=== PATIENT | male | born 1935 | race Caucasian/White ===

== ENCOUNTER 2016-11-04 17:13 | Inpatient (IN) | payer MEDICARE ==
[~2016-11-04] VITALS: Ht 175.3 cm; Wt 57.2 kg
--- NOTE | ~2016-11-04 | HEMODYNAMI ---
PATIENT:DESTINY BROOKS MEDICAL RECORD: [id number] : 37 LOCATION:[facility] ADMISSION DATE: 11/04/16 Generatedon:11/10/201615:59 Patient name: DESTINY BROOKS Patient #: [id number] SSN: : 1935 Date of study: 11/10/2016 Page: Of Hemodynamic Procedure Report Patient Data Patient Demographics Procedure consent was obtained First Name: DESTINY Gender: Male Last Name: TODD : 1935 Patient #: [id number] Age: 81 year(s) Race: Unknown Additional ID: [id number] Contact details [address]: [address] [place] [address] State: [place] City: [place] Zip code: [address] Admission Admission Data Admission Date: 11/04/2016 Admission Time: 17:13 Room #: [id number] Procedure Procedure Types Cath Procedure Peripheral Cath Diagnostic Procedure Miscellaneous Procedure Description Procedure Date Procedure Date: 11/10/2016 Procedure Start Time: 13:30 Procedure Staff Name Function José Luis Stallings MD Performing Physician Geovany Solomon RT Scrub Geovany Solomon RT Monitor Jayne Watkins RN Nurse Procedure Data Cath Procedure Fluoroscopy Diagnostic fluoroscopy Total fluoroscopy Time: 24 time: 24 min min Diagnostic fluoroscopy Total fluoroscopy dose: 202 dose: 202 mGy mGy Contrast Material Contrast Material Type Amount (ml) Isovue 300 135 Entry Location Entry Primary Successful Side Size Upsize Upsize Entry Closure Succes sful Closure Location (Fr) 1 (Fr) 2 (Fr) Remarks Device Remarks Femoral Left 5 Fr 6 Fr Exoseal artery Long Diagnostic catheters Device Type Used For End Catheter Placement Merit ULTRA BOLUS FLUSH 5Fr 65CM catheter Procedure Medications Medication Administration Route Dosage Versed I.V. 1 mg Fentanyl I.V. 50 mcg Heparin Bolus I.V. 5000 units Fentanyl I.V. 50 mcg Versed I.V. 1 mg Nitroglycerin IC/IA I.A. 200 mcg Fentanyl I.V. 50 mcg Versed I.V. 1 mg Heparin Bolus I.V. 2000 units Nitroglycerin IC/IA I.A. 200 mcg Versed I.V. 1 mg Fentanyl I.V. 50 mcg Hemodynamics Rest Heart Rate: 88 (bpm) Snapshots Pre Cath Intra NCS Post Cath Vital Signs Time Heart Resp SPO2 NIBP (mmHg) Rhythm Pain Sedation Rate (ipm) (%) Status Level (bpm) 13:27:43 72 17 97 143/64(104) NSR 0 (11) 10(A) , No pain 13:31:55 76 19 95 152/65(120) NSR 0 (11) 10(A) , No pain 13:36:11 77 16 96 151/68(110) NSR 0 (11) 10(A) , No pain 13:40:27 76 19 92 144/66(120) NSR 0 (11) 10(A) , No pain 13:44:41 73 21 95 146/65(104) NSR 0 (11) 10(A) , No pain 13:48:55 74 19 94 136/65(109) NSR 0 (11) 10(A) , No pain 13:53:05 73 20 90 139/64(114) NSR 0 (11) 10(A) , No pain 13:57:17 75 14 97 144/62(118) NSR 0 (11) 10(A) , No pain 14:01:31 72 19 98 142/63(112) NSR 0 (11) 10(A) , No pain 14:05:45 73 15 98 139/64(112) NSR 0 (11) 10(A) , No pain 14:09:57 76 19 98 156/66(125) NSR 0 (11) 10(A) , No pain 14:14:15 75 15 98 143/65(119) NSR 0 (11) 10(A) , No pain 14:18:29 75 17 98 139/65(107) NSR 0 (11) 10(A) , No pain 14:22:45 75 13 99 116/52(91) NSR 0 (11) 9(A) , No pain 14:26:51 76 18 96 118/62(91) NSR 0 (11) 9(A) , No pain 14:30:58 79 19 95 125/59(100) NSR 0 (11) 9(A) , No pain 14:35:08 75 19 96 128/58(94) NSR 0 (11) 9(A) , No pain 14:39:16 80 17 97 120/63(102) NSR 0 (11) 9(A) , No pain 14:43:24 75 19 97 134/60(95) NSR 0 (11) 10(A) , No pain 14:47:36 75 19 97 123/63(96) NSR 0 (11) 10(A) , No pain 14:51:44 76 16 98 136/64(112) NSR 0 (11) 10(A) , No pain 14:55:56 80 19 97 131/68(114) NSR 0 (11) 10(A) , No pain 15:00:05 72 17 96 131/62(99) NSR 0 (11) 10(A) , No pain 15:04:13 73 16 98 127/71(99) NSR 0 (11) 10(A) , No pain 15:08:23 74 17 98 126/60(98) NSR 0 (11) 9(A) , No pain 15:12:33 73 17 96 134/59(107) NSR 0 (11) 9(A) , No pain 15:16:45 75 18 92 115/62(84) NSR 0 (11) 9(A) , No pain 15:20:51 77 16 95 127/58(104) NSR 0 (11) 9(A) , No pain 15:24:59 72 16 94 118/63(108) NSR 0 (11) 9(A) , No pain 15:29:02 74 17 98 126/63(102) NSR 0 (11) 10(A) , No pain 15:33:12 74 18 98 121/58(103) NSR 0 (11) 10(A) , No pain 15:37:22 75 17 98 120/54(93) NSR 0 (11) 10(A) , No pain 15:41:28 77 18 97 123/63(112) NSR 0 (11) 9(A) , No pain 15:46:27 79 17 98 Measuring NSR 0 (11) 9(A) , No pain 15:46:35 79 17 98 146/67(114) NSR 0 (11) 9(A) , No pain 15:50:51 79 18 98 130/65(104) NSR 0 (11) 9(A) , No pain 15:54:57 79 17 98 144/77(112) NSR 0 (11) 9(A) , No pain Medications Time Medication Route Dose Verified Delivered Reason Notes Ef fectiveness by by 13:30:11 Fentanyl I.V. 50 Jayne Jayne for sedation mcg Roland Watkins RN RN 13:30:21 Versed I.V. 1 mg Jayne Jayne for sedation Roland Watkins RN RN 14:08:54 Heparin Bolus I.V. 5000 Jayne Jayne for units Roland Roland anticoagulation RN RN 14:15:50 Fentanyl I.V. 50 Jayne Jayne for sedation mcg Roland Watkins RN RN 14:15:59 Versed I.V. 1 mg Jayne Jayne for sedation Roland Watkins RN RN 14:21:40 Nitroglycerin I.A. 200 Jayne Jayne for IC/IA mcg Roland Roland vasodilation RN RN 14:58:36 Fentanyl I.V. 50 Jayne Jayne for sedation mcg Roland Watkins RN RN 14:58:45 Versed I.V. 1 mg Jayne Jayne for sedation Roland Watkins RN RN 15:20:39 Nitroglycerin I.A. 200 Jayne Jayne for IC/IA mcg Roland Roland vasodilation RN RN 15:28:22 Heparin Bolus I.V. 2000 Jayne Jayne for units Roland Roland anticoagulation RN RN 15:34:26 Versed I.V. 1 mg Jayne Jayne for sedation Roland Watkins RN RN 15:34:36 Fentanyl I.V. 50 Jayne Jayne for sedation mcg Roland Watkins RN field sales executive Log Time Note 13:02:28 Geovany Solomon RT (R) (CV) sent for patient. Start room use. 13:02:38 Time tracking: Regular hours 13:02:44 Plan of Care:Hemodynamics will remain stable., Cardiac rhythm will remain stable., Comfort level will be maintained., Respiratory function will remain adequate., Patient/ family verbilizes understanding of procedure., Procedure tolerated without complication., Recovers from procedure without complications.. 13:02:49 Patient received from Med/Surg to IR Alert and oriented. Tansferred to table in Supine position. 13:02:51 Correct patient and procedure confirmed by team. 13:02:52 Signed procedure consent form obtained from patient. 13:02:54 ECG and BP/O2 sat monitors applied to patient. 13:02:55 Full Disclosure recording started 13:02:55 - 13:03:02 H&P Date Dictated: 11/10/2016 H&P Addendum completed by physician on day of procedure. (MUST COMPLETE FOR ALL OUTPATIENTS). 13:03:04 Pre-procedure instructions explained to patient. 13:03:04 Pre-op teaching completed and patient verbalized understanding. 13:03:34 Family in waiting room. 13:03:36 Patient NPO since Midnight. 13:03:41 Is the patient allergic to Iodine/contrast media? No. 13:04:00 Was the patient premedicated? No 13:04:03 Is patient on blood thinner?No 13:04:05 Patient diabetic? Yes. 13:04:07 If diabetic: On Metformin? Yes 13:04:08 - 13:04:09 ----Pre-sedation anethsthesia assessment.---- 13:04:12 Previous problem with sedation/anesthesia? No ? 13:04:14 Snore? Yes 13:04:16 Sleep apnea? No 13:04:18 Deviated septum? No 13:04:19 Opens mouth fully? Yes 13:04:20 Sticks out tongue? Yes 13:04:23 Airway obstruction? No ? 13:04:25 Dentures? No ? 13:04:30 Use device set IR Diagnostic 13:04:32 Acist Syringe opened to sterile field. 13:04:32 Acist Hand Control opened to sterile field. 13:04:32 Acist Manifold opened to sterile field. 13:04:33 Bag Decanter opened to sterile field. 13:04:33 Sterile Angiographic Pack opened to sterile field. 13:11:42 Pre procedure: right dorsailis pedis pulse Doppler 13:12:12 Pre procedure: left dorsailis pedis pulse 1+ Palpable, but thready & weak; easily obliterated 13:12:16 Pre procedure: right posterior tibial pulse Doppler 13:12:19 Pre procedure: left posterior tibial pulse Doppler 13:12:30 Patient pain scale 0/10 no pain. 13:12:34 Sharps counted by scrub and verified by R.N. 13:12:34 Alarms reviewed by R. N. 13:12:38 Bilateral groins area was prepped with chlora-prep and draped in steril e fashion 13:13:10 IV patent on arrival in right forearm with 0.9% NaCl at [facility]. 13:26:29 Vital chart was started 13:26:30 Baseline sample Acquired. 13:26:33 Rhythm: sinus rhythm 13:28:04 Physician responded to page. 13:28:04 Physician arrived 13:28:06 --------ALL STOP TIME OUT------ 13:28:06 Final Timeout: patient, procedure, and site verified with staff and physician. All members of the team are in agreement. 13:28:09 Bilateral groins site verified by team. 13:28:12 Physical assessment completed. ASA score P 3 - A patient with severe systemic disease as per José Luis Stallings MD. 13:28:16 Sedation plan: IV Moderate Sedation Versed, Fentanyl 13:30:04 Procedure started. 13:30:11 Fentanyl 50 mcg I.V. was administered by Jayne Watkins RN; for sedation; 13:30:21 Versed 1 mg I.V. was administered by Jayne Watkins RN; for sedation; 13:30:31 Local anesthetic to left femerol artery with Lidocaine 1% by José Luis Stallings MD.INITIAL ACCESS ONLY 13:30:34 Cook DOC .035 guide wire opened to sterile field. 13:30:34 Terumo 5Fr [place] Sheath opened to sterile field. 13:30:35 Micropuncture VSI 4FR kit opened to sterile field. 13:30:35 TUBING, CONTRAST INJCTN HI PRES opened to sterile field. 13:30:35 Cook ALEGRE 260 guide wire opened to sterile field. 13:30:36 Terumo ANGLE 260cm glide wire opened to sterile field. 13:30:36 Terumo 6Fr [place] Destination Sheath opened to sterile field. 13:30:40 A Selphee ULTRA BOLUS FLUSH 5Fr 65CM catheter was advanced over the wire and used for . 13:30:59 A 5 Fr sheath was inserted into the Left Femoral artery 13:37:48 Sheath upsized to a 6 Fr Long. 13:42:07 CXI SUPPORT .035 135 CM STR catheter opened to sterile field. 13:44:18 Terumo TORQUE DEVICE PLASTIC .038 opened to sterile field. 13:46:39 Terumo 5FR ANGLED 100CM glide catheter opened to sterile field. 14:03:09 ClickDelivery Choice PT Extra Support J 300cm .014 gu opened to sterile field. 14:08:54 Heparin Bolus 5000 units I.V. was administered by Jayne Watkins RN; for anticoagulation; 14:15:50 Fentanyl 50 mcg I.V. was administered by Jayne Watkins RN; for sedation; 14:15:59 Versed 1 mg I.V. was administered by Jayne Watkins RN; for sedation; 14:21:40 Nitroglycerin IC/IA 200 mcg I.A. was administered by Jayne Watkins RN; for vasodilation; 14:29:10 SPIDER EMBOLIC PROTECTION DEVICE 5MM opened to sterile field. 14:29:10 Turbohawk 1 Large Atherectomy catheter opened to sterile field. 14:58:36 Fentanyl 50 mcg I.V. was administered by Jayne Watkins RN; for sedation; 14:58:45 Versed 1 mg I.V. was administered by Jayne Watkins RN; for sedation; 15:08:09 Merit INFLATION SYRINGE opened to sterile field. 15:11:27 Inflation number: 1 A Saber 2 x 150 x150 balloon was prepped and advanced across the Undefined1, then inflated to 0 KALEB for 0:00 (min:sec). 15:16:38 Terumo 6Fr [place] Sheath opened to sterile field. 15:20:39 Nitroglycerin IC/IA 200 mcg I.A. was administered by Jayne Watkins RN; for vasodilation; 15:28:22 Heparin Bolus 2000 units I.V. was administered by Jayne Watkins RN; for anticoagulation; 15:34:26 Versed 1 mg I.V. was administered by Jayne Watkins RN; for sedation; 15:34:36 Fentanyl 50 mcg I.V. was administered by Jayne Watkins RN; for sedation; 15:38:15 Cordis 6Fr Exoseal opened to sterile field. 15:41:01 Sheath removed intact; hemostasis achieved with Exoseal to the Left Femoral artery. 15:41:03 Procedure ended.(Physican Out) 15:41:46 Fluoroscopy time 24.00 minutes. 15:42:00 Fluoroscopy dose: 202 mGy 15:42:00 Flurop Dose total: 202 15:42:03 Sharps counted by scrub and verified by R.N. 15:42:05 Insertion/operative site no bleeding no hematoma. 15:44:15 Post-op/insertion site Left Femoral artery dressed using a 4 x 4 and Tegaderm. 15:44:23 Post left femerol artery:stable 15:44:26 Post Procedure Pulses reassessed and unchanged 15:44:30 Post-procedure physical assessment completed. ASA score P 3 - A patient with severe systemic disease as per José Luis Stallings MD. 15:44:33 Post procedure rhythm: unchanged. 15:45:35 Post procedure instruction explained to patient.Patient verbalizes understanding. 15:45:36 Procedure and supply charges have been captured, reviewed, submitted an d are correct. 15:45:49 Contrast amount:Isovue 300 135ml. 15:57:53 Report given to Med/Surg. 15:57:56 Patient transfered to Med/Surg with Bed. 15:59:18 Vital chart was stopped Intervention Summary Intervention Notes Time ActionType Lesion and Equipment Action# Pressure Duration Attributes Used 15:11:27 Inflate Undefined1 Saber 2 x 1 0 00:00 balloon 150 x150 balloon Device Usage Item Name Manufacture Quantity Catalog Number Hospital Part Current M inimal Lot# / Charge Number Stock Stock Serial# Code Acist Syringe Acist 1 75563 [id number] 114482 787538 2 0 Medical Systems Inc Acist Hand Acist 1 41098 038530 415317 866282 5 Control Medical Systems Inc Acist Acist 1 38585 197474 760560 546840 5 Manifold Medical Systems Inc Bag Decanter Microtek 1 2002S 129442 32147 516866 5 Medical Inc. Sterile Cardinal 1 [id number] 548715 974361 5 Angiographic Health Pack Cook DOC .035 [employer] 1 [id number] 281476 543324 5 [id number] guide wire Terumo 5Fr Terumo 1 PSQ062 830721 385633 356572 4 0 [place] Sheath Micropuncture VSI VASCULAR 1 7266V 926200 843189 5 VSI 4FR kit SOLUTIONS TUBING, Merit 1 [id number] 759441 143339 865302 5 CONTRAST Medical INJCTN HI PRES Cook ALEGRE [employer] 1 [id number] 554178 743204 5 [id number] 260 guide wire Terumo ANGLE Terumo 1 [id number] 739594 261497 201766 5 260cm glide wire Terumo 6Fr Terumo 1 RSR01 282570 25043 752621 5 [place] Destination Sheath Merit ULTRA Merit 1 [id number] 538961 981589 5 BOLUS FLUSH Medical 5Fr 65CM catheter CXI SUPPORT [facility] 1 D52514 671106 425439 5 1745508 .035 135 CM STR catheter Terumo TORQUE Fouke 1 TD01 559869 955623 928408 5 DEVICE Scientific PLASTIC .038 Terumo 5FR Terumo 1 CG508 508509 90240 495369 4 ANGLED 100CM glide catheter Fouke Sci Fouke 1 [id number] 081120 20181009 153412 5 Choice PT Scientific Extra Support J 300cm .014 gu SPIDER Medtronic 1 [id number]-594-320 449461 654857 5 EMBOLIC PROTECTION DEVICE 5MM Turbohawk 1 Ev3 1 H1-M 115851 577893 058270 5 Large Atherectomy catheter Merit Medtronic 1 A08A 820860 04991 085253 5 INFLATION SYRINGE Saber 2 x 150 Cardinal 1 [id number] 173514 043861 5 x150 balloon Health Terumo 6Fr Terumo 1 FRQ776 581991 547321 925554 4 0 [place] Sheath Cordis 6Fr Cardinal 1 EX600 419099 501246 721714 1 0 [id number] [facility] Health Signature Audit [place] Stage Time Signature Unsigned Intra-Procedure 11/10/2016 Geovany 3:59:13 PM Juanito RT (R) (CV) Signatures Monitor : Geovany Signature : Juanito RT Date : Time : [id number] [place] [address]
[~2016-11-04 17:13] MED LIST: ASMANEX0.24 GM INH; ATIVAN0.5 MG PO; BENICAR20 MG PO; COLACE100 MG PO; COUMADIN3 MG PO; COUMADIN4 MG PO; CYCLOBENZAPRINE10 MG PO; FLUNISOLIDE29 MCG NASAL; HYDROCODONE-APA1 TAB PO; LANTUS INSULIN10 ML SC; LOTREL 10-40 M1 EACH PO; PROTONIX40 MG PO; SENOKOT-S TABLE1 TAB PO; ZOCOR20 MG PO; ZOLOFT50 MG PO
[2016-11-04 18:05] LABS: BASOPHILS 0.2 % (0-2); EOSINOPHILS 0.3 % (0-7); HEMATOCRIT 38.7 % (42.0-54.0); HEMOGLOBIN 12.3 g/dL (13.5-17.5); IMMATURE GRANULOCYTES 0.3 % (0-5); LYMPHOCYTES 20.9 % (15-50); MCH 28.9 pg (26.0-34.0); MCHC 31.8 g/dL (31.0-37.0); MCV 90.8 fL (80.0-100.0); MEAN PLATELET VOLUME 9.6 fL (7.4-10.4); MONOCYTES 6.2 % (2-11); NEUTROPHILS 72.1 % (40-80); PLATELET COUNT 458 10x3/uL (130-400); RBC 4.26 10x6/uL (4.20-6.10); RDW 14.3 % (11.5-14.5); WBC 10.9 10x3/uL (4.8-10.8)
[2016-11-04 18:15] LABS: INR 1.01 (0.85-1.17); PROTIME 13.2 SECONDS (11.6-15.0)
[2016-11-04 18:19] LABS: ALBUMIN 2.8 g/dL (3.4-5.0); ALKALINE PHOSPHATASE 46 U/L (46-116); ALT (SGPT) 17 U/L (10-68); BILIRUBIN - TOTAL 0.41 mg/dL (0.2-1.3); CALC OSMOLALITY 286 mosm/kg (275-300); CALCIUM 8.4 mg/dL (8.5-10.1); CARBON DIOXIDE 30.8 mmol/L (21.0-32.0); CHLORIDE - SERUM 103 mmol/L (98-107); CREATININE - SERUM 0.8 mg/dL (0.6-1.3); POTASSIUM - SERUM 4.1 mmol/L (3.5-5.1); PROTEIN - SERUM 6.6 g/dL (6.4-8.2); SODIUM 139 mmol/L (136-145); UREA NITROGEN 7 mg/dL (7-18); eGFR NON AFRICAN AMERICAN > 90 mL/min (90-120)
[2016-11-04 18:26] LABS: GLUCOSE 292 mg/dL (74-106)
[2016-11-04 20:00] VITALS: BP 109/52
[2016-11-05] VITALS (7 sets, daily range): BP systolic 106–140; BP diastolic 39–62; Ht 175.3 cm; Wt 57.2 kg
--- NOTE | 2016-11-05 03:12 | NUR ---
SPOKE WITH RUIZ DIRECTOR SPECIALTY ABOUT PT'S 10/10 PAIN. SHE STATED THAT SHE WILL SPEAK TO THE ER DOC ABOUT THE PT'S PAIN MEDICATION.
[2016-11-05 05:26] LABS: BASOPHILS 0.4 % (0-2); HEMATOCRIT 36.3 % (42.0-54.0); HEMOGLOBIN 11.8 g/dL (13.5-17.5); IMMATURE GRANULOCYTES 0.1 % (0-5); LYMPHOCYTES 40.7 % (15-50); MCH 29.2 pg (26.0-34.0); MCHC 32.5 g/dL (31.0-37.0); MCV 89.9 fL (80.0-100.0); MEAN PLATELET VOLUME 9.7 fL (7.4-10.4); MONOCYTES 6.6 % (2-11); NEUTROPHILS 50.2 % (40-80); PLATELET COUNT 449 10x3/uL (130-400); RBC 4.04 10x6/uL (4.20-6.10); RDW 14.2 % (11.5-14.5)
[2016-11-05 05:35] LABS: WBC 7.6 10x3/uL (4.8-10.8)
[2016-11-05 05:39] LABS: CALCIUM 8.3 mg/dL (8.5-10.1); CARBON DIOXIDE 31.6 mmol/L (21.0-32.0); CHLORIDE - SERUM 106 mmol/L (98-107); CREATININE - SERUM 0.6 mg/dL (0.6-1.3); POTASSIUM - SERUM 3.6 mmol/L (3.5-5.1); SODIUM 140 mmol/L (136-145); eGFR NON AFRICAN AMERICAN > 90 mL/min (90-120)
[2016-11-05 05:43] LABS: CALC OSMOLALITY 275 mosm/kg (275-300); GLUCOSE 104 mg/dL (74-106); UREA NITROGEN 5 mg/dL (7-18)
--- NOTE | 2016-11-05 07:40 | NUR ---
PT AOX4 RESP EVEN AND NONLABORED PT DENIES NEEDS AT THIS TIME IV TO RIGHT UPPER ARM PATENT AND INTACT AT THIS TIME SRX2 BED AT LOWEST SETTING CALL LIGHT WITHIN REACH WILL CONTINUE TO MONITOR
[2016-11-05 12:12] LABS: HEMOGLOBIN A1C 9.3 % (4.8-6.0)
[2016-11-06] VITALS: BP 124/50
[2016-11-06 04:00] VITALS: BP 136/61
--- NOTE | 2016-11-06 04:21 | NUR ---
ASSESSED, PT IS ASLEEP WITH EASY RESPIRATIONS AND NO DISTRESS NOTED. ROOM AIR . THE BED IS LOW, RAISL UP X'S 2 WITH THE CALL LIGHT AT HAND.
[2016-11-06 14:08] VITALS: BP 126/50
[2016-11-06 15:55] VITALS: BP 123/54
--- NOTE | 2016-11-06 19:28 | NUR ---
PT IS SITTING IN BED VISITING, BED IN LOW POSITION, REQUESTED MEDS ON TIME FOR EARLY BED TIME, NO OTHER NEEDS AT THIS TIME
[2016-11-06 20:00] VITALS: BP 109/42
--- NOTE | 2016-11-06 22:45 | NUR ---
PT S LYING IN BED WITH HOB AT 25 DEGREES, O2 ON , EVEN RISE AND FALL OF CHEST, NO SIGNS OF DISTRESS CONTINUE WITH PLAN OF CARE
[2016-11-07] VITALS: BP 115/47
--- NOTE | 2016-11-07 03:44 | NUR ---
EYES CLOSED RESPIRATIONS WITH EASE AND UNLABORED.
[2016-11-07 04:00] VITALS: BP 135/57
--- NOTE | 2016-11-07 07:25 | NUR ---
A&O, DENIES NEEDS, SIDE RAILS UP X2, BED LOWEST POSITION, CALL LIGHT IN REACH, WILL CONTINUE TO MONITOR
--- NOTE | 2016-11-07 08:00 | NUR ---
RESTING QUIETLY AT THIS TIME.
[2016-11-07 08:12] VITALS: BP 131/64
[2016-11-07 10:21] LABS: BASOPHILS 0.4 % (0-2); HEMATOCRIT 34.9 % (42.0-54.0); IMMATURE GRANULOCYTES 0.1 % (0-5); LYMPHOCYTES 30.4 % (15-50); MCH 28.9 pg (26.0-34.0); MCHC 31.5 g/dL (31.0-37.0); MCV 91.8 fL (80.0-100.0); MEAN PLATELET VOLUME 9.5 fL (7.4-10.4); MONOCYTES 7.1 % (2-11); PLATELET COUNT 363 10x3/uL (130-400); RDW 14.5 % (11.5-14.5); WBC 7.5 10x3/uL (4.8-10.8)
--- NOTE | 2016-11-07 10:33 | NUR ---
Wound care consult: Right lateral foot has 1cm x 2cm dark, dry flat scabbed area (dried blister?) There is bruising around it and it is tender to the touch. Pt reports it is not as tender as it has been. There is no drainage noted and no edema or redness. In between #3 and 4 toes and #4 and 5 are dark scabbed areas. And the great toe has a small scab on the tip. All wounds are dry and showing no signs of drainage. There is no odor noted. Cushioning is being placed between toes (using Mepilex foam) and a cushioned dressing has been placed over area on right lateral foot for protection. Wound care will continue monitoring.
[2016-11-07 10:43] LABS: ALBUMIN 2.2 g/dL (3.4-5.0); ALKALINE PHOSPHATASE 37 U/L (46-116); ALT (SGPT) 14 U/L (10-68); BILIRUBIN - TOTAL 0.34 mg/dL (0.2-1.3); CALC OSMOLALITY 289 mosm/kg (275-300); CALCIUM 7.8 mg/dL (8.5-10.1); CHLORIDE - SERUM 101 mmol/L (98-107); CREATININE - SERUM 0.8 mg/dL (0.6-1.3); POTASSIUM - SERUM 4.5 mmol/L (3.5-5.1); PROTEIN - SERUM 5.5 g/dL (6.4-8.2); SODIUM 135 mmol/L (136-145); UREA NITROGEN 8 mg/dL (7-18); eGFR NON AFRICAN AMERICAN > 90 mL/min (90-120)
[2016-11-07 10:45] LABS: GLUCOSE 488 mg/dL (74-106)
--- NOTE | 2016-11-07 11:22 | NUR ---
Patient Name: DESTINY BROOKS Admission Status: Urgent Accout number: [id number] Admission Date: 11-04-2016 : 1935 Admission Diagnosis: Attending: ART Current LOS: 3 Anticipated DC Date: 11-07-2016 Planned Disposition: Home Primary Insurance: [employer] PPO MCR ADVANT Discharge Planning Comments: CM met with patient to assess discharge planning needs. Patient lives with his Shabnam, who will be the one to take him home. Patient stated that he does not have any steps in his home. He has a cane and walker & is independent with his care. Patient denies HH needs at this time. CM will continue to follow and assist as needed with discharge plans. PCP: Arie Boles in [place] Shabnam () [phone] Tenter: Brittnee Dial * Is the patient Alert and Oriented? Yes 0 * How many steps to enter\exit or inside your home? 0 0 * PCP ARIE 0 * [facility] [place] 0 * Preadmission Environment Home with Family 0 * ADLs Independent 0 * Equipment Walker 0 * List name and contact numbers for known caregivers / representatives who currently or will assist patient after discharge: SHABNAM () [phone] 0 * Community resources currently utilized None 0 * Additional services required to return to the preadmission environment? Yes 0 * Can the patient safely return to the preadmission environment? Yes 0 * Has this patient been hospitalized within the prior 30 days at any hospital? No 0 Grand Total: 0
[2016-11-07 12:06] VITALS: BP 120/42
--- NOTE | 2016-11-07 12:29 | NUR ---
NUTRITION MONITORING & EVAL CHART REVIEWED. PT VISIT. TOLERATING ADA DIET, 75% INTAKE BREAKFAST. WILL CONTINUE TO PROVIDE DIET, MONITOR PO INTAKE. RD FOLLOWING
[2016-11-07 16:43] VITALS: BP 112/56
--- NOTE | 2016-11-07 19:12 | NUR ---
PT IS SITTING IN BED VISITING WITH SPOUSE, BED IN LOW POSITION, NO SIGNS OF DISTRESS, PT STATED NO NEEDS AT THIS TIME, CALL LIGHT IN REACH, CONTINUE WITH CARE PLAN
[2016-11-07 20:00] VITALS: BP 116/53
--- NOTE | 2016-11-08 00:31 | NUR ---
UPON ENTERING ROOM PATIENT WAS LAYING ON HIS RIGHT SIDE, ON TOP ON THE IV TUBING, IV STARTED BEEPING. RESTARTED IV AND PATIENT LAYED ON HIS BACK. STRAIGHTENED OUT IV TUBING. PATIENT DENIES NEEDS, STATED "WELL I HAD A LITTLE NAP. NO I DO NOT NEED ANYTHING, THANK YOU." NO SIGNS OF DISTRESS NOTED, VERY PLEASENT. BED IN LOWEST POSITION, CALL LIGHT IN REACH. BED RAILS UP X'S 2.
[2016-11-08 03:38] VITALS: BP 114/54
[2016-11-08 04:17] LABS: BASOPHILS 0.3 % (0-2); EOSINOPHILS 1.9 % (0-7); HEMATOCRIT 36.2 % (42.0-54.0); HEMOGLOBIN 11.6 g/dL (13.5-17.5); IMMATURE GRANULOCYTES 0.2 % (0-5); LYMPHOCYTES 35.5 % (15-50); MCH 29.1 pg (26.0-34.0); MEAN PLATELET VOLUME 9.8 fL (7.4-10.4); MONOCYTES 7.6 % (2-11); NEUTROPHILS 54.5 % (40-80); PLATELET COUNT 397 10x3/uL (130-400); RBC 3.98 10x6/uL (4.20-6.10); RDW 14.3 % (11.5-14.5); WBC 9.3 10x3/uL (4.8-10.8)
[2016-11-08 04:37] LABS: ALBUMIN 2.3 g/dL (3.4-5.0); ALKALINE PHOSPHATASE 37 U/L (46-116); ALT (SGPT) 13 U/L (10-68); BILIRUBIN - TOTAL 0.39 mg/dL (0.2-1.3); CALC OSMOLALITY 281 mosm/kg (275-300); CALCIUM 8.3 mg/dL (8.5-10.1); CARBON DIOXIDE 33.9 mmol/L (21.0-32.0); CHLORIDE - SERUM 104 mmol/L (98-107); CREATININE - SERUM 0.9 mg/dL (0.6-1.3); GLUCOSE 169 mg/dL (74-106); POTASSIUM - SERUM 3.9 mmol/L (3.5-5.1); PROTEIN - SERUM 5.8 g/dL (6.4-8.2); SODIUM 140 mmol/L (136-145); UREA NITROGEN 9 mg/dL (7-18); eGFR NON AFRICAN AMERICAN 86 mL/min (90-120)
--- NOTE | 2016-11-08 07:00 | NUR ---
REPORT RECIEVED ASSUMED CARE. PATIENT IN BED WITH IV INTACT. NO COMPLAINTS AT THIS TIME. CALL LIGHT WITHIN REACH.
[2016-11-08 08:22] VITALS: BP 114/57
--- NOTE | 2016-11-08 12:00 | NUR ---
PATIENT SITTING UP IN CHAIR WITH NO COMPLAINTS AT THIS TIME. IV INTACT. SIGNED CONSENTS FOR PACEMAKER PLACEMENT. CALL LIGHT WITHIN REACH.
[2016-11-08 12:02] VITALS: BP 116/62
--- NOTE | 2016-11-08 13:40 | NUR ---
PATIENT TO CARDIAC SAXOPHONE ASSEMBLER.
[2016-11-08 16:26] VITALS: BP 121/73
--- NOTE | 2016-11-08 18:45 | NUR ---
PATIENT SITTING UP IN BED WITH NO COMPLAINTS AT THIS TIME. IV INTACT. FAMILY AT BEDSIDE. CALL LIGHT WITHIN REACH.
--- NOTE | 2016-11-08 19:08 | NUR ---
PT IS SITTING UP IN BED VISITING WITH SPOUSE, BED IN LOW POSITION, NO SIGNS OF DISTRESS, WILL CONTINUE WITH PLAN OF CARE
[2016-11-08 20:00] VITALS: BP 102/51
--- NOTE | 2016-11-08 20:16 | NUR ---
PT IV WAS DISCONNEDTED FROM PORT ATTACHED TO PT. RECONNECTED AND FLUSHED WELL, WILL NOT RESITE, NO OTHER ASSISTANCE AT THIS TIME
[2016-11-09] VITALS: BP 121/57
--- NOTE | 2016-11-09 02:00 | NUR ---
PT IN BED WITH NO DISTRESS. RESPIRATIONS ARE EVEN AND UNLABORED. SIDE RAILS ARE UP X 2. BED IS IN LOWEST POSITION. CALL LIGHT IN REACH.
[2016-11-09 04:00] VITALS: BP 123/62
[2016-11-09 05:00] LABS: BASOPHILS 0.3 % (0-2); HEMATOCRIT 36.2 % (42.0-54.0); HEMOGLOBIN 11.8 g/dL (13.5-17.5); IMMATURE GRANULOCYTES 0.2 % (0-5); LYMPHOCYTES 30.3 % (15-50); MCH 29.6 pg (26.0-34.0); MCHC 32.6 g/dL (31.0-37.0); MCV 90.7 fL (80.0-100.0); MEAN PLATELET VOLUME 9.5 fL (7.4-10.4); MONOCYTES 7.4 % (2-11); NEUTROPHILS 59.8 % (40-80); PLATELET COUNT 378 10x3/uL (130-400); RBC 3.99 10x6/uL (4.20-6.10); RDW 14.6 % (11.5-14.5); WBC 8.9 10x3/uL (4.8-10.8)
[2016-11-09 05:24] LABS: ALBUMIN 2.4 g/dL (3.4-5.0); ALKALINE PHOSPHATASE 36 U/L (46-116); ALT (SGPT) 12 U/L (10-68); CALCIUM 8.2 mg/dL (8.5-10.1); CARBON DIOXIDE 28.4 mmol/L (21.0-32.0); CHLORIDE - SERUM 104 mmol/L (98-107); CREATININE - SERUM 0.7 mg/dL (0.6-1.3); PROTEIN - SERUM 5.4 g/dL (6.4-8.2); SODIUM 138 mmol/L (136-145); UREA NITROGEN 10 mg/dL (7-18); eGFR NON AFRICAN AMERICAN > 90 mL/min (90-120)
[2016-11-09 05:25] LABS: CALC OSMOLALITY 284 mosm/kg (275-300); GLUCOSE 274 mg/dL (74-106); POTASSIUM - SERUM 4.8 mmol/L (3.5-5.1)
--- NOTE | 2016-11-09 07:52 | NUR ---
AWAKE AND ALERT. ORIENTED X3. NO C/O AT THIS TIME. LUNGS ARE CLEAR BILATERALLY, NO COUGH NOTED. SKIN IS INTACT WITHOUT REDNESS EXCEPT WOUNDS TO RIGHT FOOT WHICH REPORTS IMPROVED. PEDAL PULSES VERY FAINT. IV TO RIGHT UPPER ARM IS PATNET WITHOUT REDNESS AT INSERTION SITE. DENIES NEEDS.
[2016-11-09 07:55] VITALS: BP 124/54
--- NOTE | 2016-11-09 08:51 | NUR ---
REQUESTED AND GIVEN ONE HYDROCODONE PO FOR C/O RIGHT LEG PAIN LEVEL 7. WILL MONITOR.
--- NOTE | 2016-11-09 10:30 | NUR ---
UP TO SHOWER WITH 'S ASSISTANCE. DENIES NEEDS.
--- NOTE | 2016-11-09 11:27 | NUR ---
DRESSINGS CHANGED TO RIGHT FOOT. WOUNDS TO ALL 3 AREAS ARE BLACK ESCHAIR. NO DRAINAGE NOTED.
[2016-11-09 12:00] VITALS: BP 130/59
[2016-11-09 15:53] VITALS: BP 136/58
--- NOTE | 2016-11-09 17:00 | NUR ---
PULLED IV OUT BY MISTAKE WITH CATHETER INTACT. RESITED TO LEFT FOREARM AFTER ONE ATTEMPT WITH 22G. FSBS 293. GIVEN 6 UNITS HUMALOG SUBQ PER SS. SUPPER SERVED IN ROOM. NO CHANGES NOTED. REQUESTED AND GIVEN ONE HYDROCODONE PO FOR C/O RIGHT FOOT PAIN LEVEL 8. WILL MONITOR.
[2016-11-09 20:00] VITALS: BP 118/43
--- NOTE | 2016-11-09 22:14 | NUR ---
REC'D RESTING IN BED. DENIED PAIN AT THIS TIME. NO DISTRESS NOTED. IS AT BEDSIDE. IS WANTING THE TAPE ON IV CHANGED. WILL DO. WILL ADMIN PM/AM MEDS PRESCRIBED. INSTRUCTED TO CALL IF NEEDED ANYTHING. VERBALIZED UNDERSTANDING. BED LOW, LOCKED, CALL LIGHT IN REACH. WILL CONT TO MONITOR. WILL BE NPO AFTER MIDNIGHT. CONSENTS ARE SIGNED AND IN THE CHART.
[2016-11-10] VITALS (12 sets, daily range): BP systolic 118–179; BP diastolic 56–76
--- NOTE | 2016-11-10 02:00 | NUR ---
PT RESTING IN BED WITH NO DISTRESS. RESPIRATIONS ARE EVEN AND UNLABORED. SIDE RAILS X 2. BED IS LOW. CALL LIGHT IN REACH.
[2016-11-10 05:22] LABS: BASOPHILS 0.4 % (0-2); EOSINOPHILS 1.8 % (0-7); HEMOGLOBIN 11.1 g/dL (13.5-17.5); IMMATURE GRANULOCYTES 0.2 % (0-5); LYMPHOCYTES 31.4 % (15-50); MCH 29.1 pg (26.0-34.0); MCHC 31.7 g/dL (31.0-37.0); MCV 91.6 fL (80.0-100.0); MONOCYTES 7.8 % (2-11); NEUTROPHILS 58.4 % (40-80); PLATELET COUNT 409 10x3/uL (130-400); RBC 3.82 10x6/uL (4.20-6.10); RDW 14.8 % (11.5-14.5); WBC 9.3 10x3/uL (4.8-10.8)
[2016-11-10 05:48] LABS: ALBUMIN 2.3 g/dL (3.4-5.0); ALKALINE PHOSPHATASE 34 U/L (46-116); ALT (SGPT) 11 U/L (10-68); CALC OSMOLALITY 287 mosm/kg (275-300); CALCIUM 8.1 mg/dL (8.5-10.1); CARBON DIOXIDE 30.8 mmol/L (21.0-32.0); CHLORIDE - SERUM 102 mmol/L (98-107); GLUCOSE 288 mg/dL (74-106); POTASSIUM - SERUM 4.9 mmol/L (3.5-5.1); PROTEIN - SERUM 5.7 g/dL (6.4-8.2); SODIUM 139 mmol/L (136-145); UREA NITROGEN 9 mg/dL (7-18); eGFR NON AFRICAN AMERICAN 86 mL/min (90-120)
[2016-11-10 05:51] LABS: INR 0.95 (0.85-1.17); PROTIME 12.5 SECONDS (11.6-15.0)
[2016-11-10 05:52] LABS: CREATININE - SERUM 0.9 mg/dL (0.6-1.3)
--- NOTE | 2016-11-10 06:27 | NUR ---
RESTING WELL, NO DISTRESS NOTED. WILL CONT TO MONITOR.
--- NOTE | 2016-11-10 07:17 | NUR ---
AWAKE AND ALERT. ORIENTED X3. C/O RIGHT FOOT PAIN LEVEL 9. REQUESTED AND GIVEN ONE HYDROCODONE PO FOR SAME. WILL MONITOR. LUNGS ARE CLEAR BILATERALLY, NO COUGH NOTED. SKIN IS INTACT EXCEPT WOUNDS TO RIGHT FOOT WHICH HAVE DRY INTACT DRESSINGS IN PLACE. IV TO RIGHT FOREARM IS PATENT WITHOUT REDNESS AT INSERTION SITE. REPORTS UP TO BR PER SELF THIS AM. HAD GOOD BM. DENIES NEEDS.
--- NOTE | 2016-11-10 08:00 | NUR ---
NPO AT THIS TIME FOR PROCEDURE. DENIES NEEDS. REPORTS GOOD PAIN MANAGEMENT WITH USE OF HYDROCODONE.
--- NOTE | 2016-11-10 10:19 | NUR ---
NUTRITION MONITORING & EVAL CHART REVIEWED. PT CURRENTLY NPO FOR PROCEDURE. WILL PROVIDE DIET WHEN APPROPRIATE, MONITOR PO INTAKE. RD FOLLOWING
--- NOTE | 2016-11-10 12:53 | NUR ---
PT TAKEN VIA BED AT THIS TIME TO IR WITH HOSPITAL STAFF
--- NOTE | 2016-11-10 13:00 | NUR ---
OFF UNIT VIA WC FOR PROCEDURE. FAMILY AT BEDSIDE.
--- NOTE | 2016-11-10 16:20 | NUR ---
RETURNED FROM PROCEDURE. A/O X3. RIGHT GROIN DRY AND INTACT. DENIES NEEDS.
--- NOTE | 2016-11-10 18:45 | NUR ---
ATE ALL OF SUPPER. HAD LARGE BM IN BED RICE. VSS. AT BEDSIDE. NO CHANGES NOTED. DENIES NEEDS.
[2016-11-11] VITALS: BP 110/44
[2016-11-11 04:00] VITALS: BP 117/49
--- NOTE | 2016-11-11 05:09 | NUR ---
ALERT & ORIENTED. HAS SLEPT COMFORTABLY THIS SHIFT. PAIN CONTROLLED WITH NORCO AND DILAUDID FOR SEVERE PAIN. PEDAL PULSES PRESENT. MEPILEX DRESSIG TO TOES AND SIDE OF FOOT INTACT. NO OTHER NEEDS. WILL CONTINUE TO MONITOR.
[2016-11-11 06:07] LABS: BASOPHILS 0.3 % (0-2); EOSINOPHILS 1.7 % (0-7); HEMATOCRIT 35.5 % (42.0-54.0); HEMOGLOBIN 11.4 g/dL (13.5-17.5); IMMATURE GRANULOCYTES 0.2 % (0-5); LYMPHOCYTES 28.6 % (15-50); MCH 29.3 pg (26.0-34.0); MCHC 32.1 g/dL (31.0-37.0); MCV 91.3 fL (80.0-100.0); MEAN PLATELET VOLUME 9.5 fL (7.4-10.4); MONOCYTES 6.1 % (2-11); NEUTROPHILS 63.1 % (40-80); PLATELET COUNT 346 10x3/uL (130-400); RBC 3.89 10x6/uL (4.20-6.10); RDW 14.8 % (11.5-14.5); WBC 9.8 10x3/uL (4.8-10.8)
[2016-11-11 06:23] LABS: ALBUMIN 2.3 g/dL (3.4-5.0); ALKALINE PHOSPHATASE 39 U/L (46-116); ALT (SGPT) 13 U/L (10-68); CALCIUM 8.2 mg/dL (8.5-10.1); CARBON DIOXIDE 31.6 mmol/L (21.0-32.0); CHLORIDE - SERUM 103 mmol/L (98-107); POTASSIUM - SERUM 4.2 mmol/L (3.5-5.1); PROTEIN - SERUM 5.8 g/dL (6.4-8.2); SODIUM 138 mmol/L (136-145); UREA NITROGEN 9 mg/dL (7-18); eGFR NON AFRICAN AMERICAN > 90 mL/min (90-120)
[2016-11-11 06:25] LABS: CALC OSMOLALITY 280 mosm/kg (275-300); CREATININE - SERUM 0.6 mg/dL (0.6-1.3); GLUCOSE 207 mg/dL (74-106)
--- NOTE | 2016-11-11 08:10 | NUR ---
AWAKE AND ALERT. ORIENTED X3. NO C/O THIS AM. LUNGS ARE CLEAR BILATERALLY, NO COUGH NOTED. SKIN IS INTACT WITHOUT REDNESS EXCEPT BLACK AREAS TO RIGHT FOOT. PEDAL PULSE IS PALPABLE THIS AM. IV TO RIGHT FOREARM IS PATENT WITHOUT REDNESS AT INSERTION SITE. DENIES NEEDS.
[2016-11-11 08:40] VITALS: BP 128/56
--- NOTE | 2016-11-11 11:08 | NUR ---
RESTING QUIETLY IN BED. DENIES NEEDS.
--- NOTE | 2016-11-11 12:00 | NUR ---
FSBS 426. DR. NOONAN AWARE OF SAME. NO NEW ORDERS. PATIENT HAD PANCAKES FOR BREAKFAST WITH REGULAR SYRUP. GIVEN 20 UNITS HUMALOG SUBQ PER SS.
[2016-11-11 12:48] VITALS: BP 124/57
--- NOTE | 2016-11-11 15:19 | NUR ---
RESTING QUIETLY IN BED. DENIES NEEDS.
[2016-11-11 16:13] VITALS: BP 114/64
--- NOTE | 2016-11-11 18:07 | NUR ---
REPORTS NO RELIEF WITH LAST DOSE OF HYDROCODONE. REQUESTED AND GIVEN ONE MG DILAUDID SLOW IVP FOR SAME. WILL MONITOR. FAMILY IN ROOM.
--- NOTE | 2016-11-11 19:00 | NUR ---
REPORT RECIEVED, INITIAL ASSESSMENT COMPLETE, PLEASE SEE FLOW SHEETS FOR DETAILS. BED LOW AND LOCKED, CALL LIGHT IN REACH. IN ROOM. WILL CPOC.
--- NOTE | 2016-11-11 19:30 | NUR ---
PATIENT WANTED TO TAKE A SHOWER WITH IN ROOM FOR SUPPORT IF NEEDED, THEY ALSO ASKED FOR A LINEN CHANGE. IV WAS PAUSED AND DISCONNECTED FROM TUBING, CAP PLACED ON BOTH AND PIV SITE COVERED. FULL LINEN CHANGE PROVIDED ATT. PT TOLERATED SHOWER WELL, DENIES ANY OTHER NEEDS ATT. BED LOW AND LOCKED, CALL LIGHT IN REACH. WILL CPOC.
[2016-11-11 20:00] VITALS: BP 97/50
--- NOTE | 2016-11-11 21:11 | NUR ---
C/O PAIN IN LEG, GAVE NORCO PER ORDERS.
--- NOTE | 2016-11-11 23:17 | NUR ---
PIV LEAKING AROUND HUB, RESITED PIV TO LEFT FA, NS @ 15ML/HR ATTACHED AND RUNNING. BED LOW AND LOCKED, CALL LIGHT IN REACH. WILL CPOC.
[2016-11-12] VITALS: BP 139/53
--- NOTE | 2016-11-12 01:02 | NUR ---
SLEEPING, NO SIGNS OF DISTRESS. BED LOW AND LOCKED, CALL LIGHT IN REACH. WILL CPOC.
[2016-11-12 03:34] VITALS: BP 143/81
--- NOTE | 2016-11-12 04:28 | NUR ---
C/O PAIN IN LEG, WILL GIVE PAIN MEDS PER ORDERS.
[2016-11-12 06:29] LABS: BASOPHILS 0.3 % (0-2); EOSINOPHILS 1.8 % (0-7); HEMATOCRIT 34.7 % (42.0-54.0); IMMATURE GRANULOCYTES 0.1 % (0-5); LYMPHOCYTES 30.9 % (15-50); MCH 29.1 pg (26.0-34.0); MCHC 31.7 g/dL (31.0-37.0); MCV 91.8 fL (80.0-100.0); MEAN PLATELET VOLUME 9.9 fL (7.4-10.4); MONOCYTES 9.4 % (2-11); NEUTROPHILS 57.5 % (40-80); PLATELET COUNT 350 10x3/uL (130-400); RBC 3.78 10x6/uL (4.20-6.10); WBC 8.9 10x3/uL (4.8-10.8)
[2016-11-12 06:52] LABS: ALBUMIN 2.3 g/dL (3.4-5.0); ALKALINE PHOSPHATASE 38 U/L (46-116); ALT (SGPT) 13 U/L (10-68); BILIRUBIN - TOTAL 0.27 mg/dL (0.2-1.3); CALC OSMOLALITY 284 mosm/kg (275-300); CALCIUM 8.1 mg/dL (8.5-10.1); CARBON DIOXIDE 30.7 mmol/L (21.0-32.0); CHLORIDE - SERUM 103 mmol/L (98-107); CREATININE - SERUM 0.8 mg/dL (0.6-1.3); GLUCOSE 296 mg/dL (74-106); POTASSIUM - SERUM 4.7 mmol/L (3.5-5.1); PROTEIN - SERUM 5.7 g/dL (6.4-8.2); SODIUM 138 mmol/L (136-145); UREA NITROGEN 7 mg/dL (7-18); eGFR NON AFRICAN AMERICAN > 90 mL/min (90-120)
--- NOTE | 2016-11-12 07:00 | NUR ---
PT REC'D FROM YORDY HAN. RESTING IN BED. AAOX4. NO COMPLAINTS OF PAIN CURRENTLY. +1 PEDAL PULSE TO R FOOT AND +2 TO LEFT FOOT. PINKISH/SANON COLOR NOTED TO R FOOT. WARM TO TOUCH. PT STATES, "MY FOOT USED TO BE COLD ALL THE TIME, AND NOW ITS WARM!" EXPLAINED TO PT THAT THIS IS A GOOD THING. SORE TO R OUTSIDE PORTION OF FOOT, IN BETWEEN 3RD AND 4TH TOE, AND IN BETWEEN 4TH AND 5TH TOE. NO DRAINAGE OR ODOR NOTED. PIV TO L FA FREE OF REDNESS AND SWELLING. REGULAR HEART RATE AND RHYTHM. LUNG SOUNDS CLEAR AND EQUAL BILAT. BED LOW, CALL LIGHT IN REACH, DENIES NEEDS. CPOC.
[2016-11-12 08:11] VITALS: BP 133/57
--- NOTE | 2016-11-12 09:25 | NUR ---
MORNING MEDS PASSED AT THIS TIME. PRN PAIN MEDICATION ADMINISTERED WELL DUE TO PT COMPLAINTS OF 8/10 R FOOT PAIN. WILL REASSESS. BED LOW, CALL LIGHT IN REACH, DENIES NEEDS. CPOC.
--- NOTE | 2016-11-12 11:43 | NUR ---
AWAKE AND ALERT AT THIS TIME. RESPIRATIONS EVEN AND NON LABORED. CALL LIGHT IN REACH, WILL CONTINUE WITH PLAN OF CARE.
[2016-11-12 11:54] VITALS: BP 157/66
--- NOTE | 2016-11-12 11:55 | NUR ---
CURRENT FSBS 267. 10 UNITS OF INSULIN ADMINISTERED PER SS. 8 UNITS SCHEDULED FOR NOON HELD AT THIS TIME.
--- NOTE | 2016-11-12 16:20 | NUR ---
CURRENT FSBS 306. 12 UNITS OF INSULIN ADMINISTERED PER SS. BED LOW, CALL LIGHT IN REACH, DENIES NEEDS. CPOC.
[2016-11-12 16:32] VITALS: BP 136/56
--- NOTE | 2016-11-12 19:30 | NUR ---
REC'D LYING IN BED. ALERT AND ORIENTED X4. DENIED PAIN AT THIS TIME. NO DISTRESS NOTED. FAMILY IS AT BEDSIDE. WILL ADMIN PM/AM MEDS. INSTRUCTED TO CALL IF NEEDED ANYTHING. VERBALIZED UNDERSTANDING. BED LOW, LOCKED, CALL LIGHT IN REACH. WILL CONT TO MONITOR.
[2016-11-12 20:00] VITALS: BP 110/61
--- NOTE | 2016-11-12 20:17 | NUR ---
LYING IN BED,WITHOUT DISTRESS.CALL LIGHT IN REACH
--- NOTE | 2016-11-12 22:43 | NUR ---
BLOOD SUGAR 455, TOLD BY YORDY MELCHOR TO TREAT WITH THE SLIDING SCALE AND RECHECK IN 2 HOURS AND TREAT AGAIN IF NEED BE. TREATED WITH 20 UNITS WILL RECHECK IN 2HOURS.
[2016-11-13] VITALS: BP 130/63
[2016-11-13 05:17] LABS: BASOPHILS 0.4 % (0-2); EOSINOPHILS 1.3 % (0-7); HEMATOCRIT 34.4 % (42.0-54.0); IMMATURE GRANULOCYTES 0.1 % (0-5); LYMPHOCYTES 29.8 % (15-50); MCH 29.3 pg (26.0-34.0); MCV 91.5 fL (80.0-100.0); MONOCYTES 8.7 % (2-11); NEUTROPHILS 59.7 % (40-80); PLATELET COUNT 354 10x3/uL (130-400); RBC 3.76 10x6/uL (4.20-6.10); RDW 15.1 % (11.5-14.5); WBC 9.6 10x3/uL (4.8-10.8)
[2016-11-13 05:41] LABS: ALBUMIN 2.3 g/dL (3.4-5.0); ALKALINE PHOSPHATASE 41 U/L (46-116); ALT (SGPT) 14 U/L (10-68); BILIRUBIN - TOTAL 0.24 mg/dL (0.2-1.3); CALC OSMOLALITY 280 mosm/kg (275-300); CALCIUM 8.2 mg/dL (8.5-10.1); CARBON DIOXIDE 30.3 mmol/L (21.0-32.0); CHLORIDE - SERUM 104 mmol/L (98-107); CREATININE - SERUM 0.6 mg/dL (0.6-1.3); GLUCOSE 259 mg/dL (74-106); POTASSIUM - SERUM 4.3 mmol/L (3.5-5.1); PROTEIN - SERUM 5.9 g/dL (6.4-8.2); SODIUM 138 mmol/L (136-145); eGFR NON AFRICAN AMERICAN > 90 mL/min (90-120)
[2016-11-13 05:49] LABS: UREA NITROGEN 1 mg/dL (7-18)
--- NOTE | 2016-11-13 07:00 | NUR ---
PT REC'D FROM NIXON CARLSON. RESTING IN BED WITH EYES CLOSED. EASILY AROUSED. AAOX4. RATING CURRENT PAIN IN R FOOT 09/17. WILL REASSESS. +3 PITTING EDEMA TO R FOOT. +1 PEDAL PULSE TO R FOOT. SORE IN BETWEEN 3RD AND 4TH TOES, 4TH AND 5TH TOES, AND SORE TO SIDE OF R FOOT UNSTAGABLE AT THIS TIME. BLACKENED SKIN OVER AREA THAT IS HARDENED. NO ODOR OR DRAINAGE NOTED. REDDNESS NOTED THAT GOES FROM R SIDE OF R FOOT AND FADES UP PT'S FOOT TO ANKLE. BRISK CAP REFILL TO TOES. PT HAS SENSATION TO ALL TOES, BOTTOM OF HIS FOOT, AND TOP OF FOOT. BED LOW, CALL LIGHT IN REACH, DENIES NEEDS. CPOC.
--- NOTE | 2016-11-13 09:10 | NUR ---
MORNING MEDS PASSED AT THIS TIME. MIRALAX MIXED IN APPLE JUICE. PRN PAIN MEDICATION ADMINISTERED DUE PT COMPLAINTS OF 6/10 R FOOT PAIN. WILL REASSESS. BED LOW, CALL LIGHT IN REACH, DENIES NEEDS. CPOC.
[2016-11-13 11:17] VITALS: BP 129/63
--- NOTE | 2016-11-13 11:38 | NUR ---
AWAKE AND ALERT AT THIS TIME. RESPIRATIONS EVEN AND NON LABORED. DENIES NEEDS AT THIS TIME. CALL LIGHT IN REACH, WILL CONTINUE WITH PLAN OF CARE.
--- NOTE | 2016-11-13 11:45 | NUR ---
CURRENT FSBS 298. 10 UNITS OF INSULIN ADMINISTERED PER SS. 8 UNITS SCHEDULED ADMINISTERED WELL PER MAR. PRN PAIN MEDICATION ADMINISTERED PER PT COMPLAINTS OF 7/10 R FOOT PAIN. WILL REASSESS. MEPILEX DRESSING BETWEEN TOES CHANGED PER ORDERS. BED LOW, CALL LIGHT IN REACH, DENIES NEEDS. CPOC.
--- NOTE | 2016-11-13 14:47 | NUR ---
PT RESTING IN BED IN SUPINE POSITION. EYES CLOSED. RESP EVEN AND UNLABORED. BED LOW, CALL LIGHT IN REACH, CPOC.
[2016-11-13 15:14] VITALS: BP 123/44
--- NOTE | 2016-11-13 16:52 | NUR ---
CURRENT FSBS 376. 16 UNITS OF INSULIN ADMINISTERED PER SS. AT BEDSIDE. BED LOW, CALL LIGHT IN REACH, DENIES NEEDS. CPOC.
[2016-11-13 19:00] VITALS: BP 123/51
--- NOTE | 2016-11-13 19:15 | NUR ---
PT IS SITTING IN BED VISITING W/ SPOUSE, VERBALIZED FEELS SO MUCH BETTER. RT FOOT WARM TO TOUCH, PEDAL PULSE PALPABLE, BED IN LOW POSITION, CALL LIGHT IN REACH NO OTHER NEEDS AT THIS TIME
--- NOTE | 2016-11-13 21:20 | NUR ---
PATIENT RESTING IN BED WITH NIXON MUNOZ AT BEDSIDE. COSIGNED ON INSULIN INJECTION. PT DENIES NEEDS AT THIS TIME. BED IN LOWEST POSITION AND CALL LIGHT WITHIN REACH.
--- NOTE | 2016-11-13 21:45 | NUR ---
CALLED MARGOTH IN REGARDS TO PT BLOOD SUGAR 415 GAVE PT 20 UNITS PER SLIDING SCALE ADVISED TO RECHECK IN TWO HOURS
[2016-11-14 00:37] VITALS: BP 124/64
[2016-11-14 04:00] VITALS: BP 135/66
[2016-11-14 05:42] LABS: BASOPHILS 0.4 % (0-2); HEMATOCRIT 38.4 % (42.0-54.0); HEMOGLOBIN 12.2 g/dL (13.5-17.5); IMMATURE GRANULOCYTES 0.3 % (0-5); LYMPHOCYTES 27.4 % (15-50); MCH 29.5 pg (26.0-34.0); MCHC 31.8 g/dL (31.0-37.0); MONOCYTES 8.1 % (2-11); NEUTROPHILS 61.8 % (40-80); PLATELET COUNT 403 10x3/uL (130-400); RBC 4.13 10x6/uL (4.20-6.10); RDW 15.4 % (11.5-14.5); WBC 11.3 10x3/uL (4.8-10.8)
[2016-11-14 06:06] LABS: ALBUMIN 2.7 g/dL (3.4-5.0); ALKALINE PHOSPHATASE 48 U/L (46-116); ALT (SGPT) 14 U/L (10-68); CALC OSMOLALITY 281 mosm/kg (275-300); CALCIUM 8.9 mg/dL (8.5-10.1); CHLORIDE - SERUM 103 mmol/L (98-107); CREATININE - SERUM 0.6 mg/dL (0.6-1.3); GLUCOSE 213 mg/dL (74-106); POTASSIUM - SERUM 4.7 mmol/L (3.5-5.1); PROTEIN - SERUM 6.6 g/dL (6.4-8.2); SODIUM 139 mmol/L (136-145); eGFR NON AFRICAN AMERICAN > 90 mL/min (90-120)
[2016-11-14 06:07] LABS: UREA NITROGEN 8 mg/dL (7-18)
--- NOTE | 2016-11-14 07:10 | NUR ---
REPORT RECIEVED, ASSUMED CARE OF PT. L FOREARM IV INFUSING ORDERED, DRSG CLEAN, DRY AND INTACT. NO COMPLAINTS AT THIS TIME. CALL LIGHT WITHIN REACH.
--- NOTE | 2016-11-14 07:50 | NUR ---
REQUESTED AND GIVEN ONE HYDROCODONE PO FOR C/O RIGHT FOOT PAIN LEVEL 7. WILL MONITOR.
[2016-11-14 08:15] VITALS: BP 143/63
[2016-11-14 11:34] VITALS: BP 130/64
--- NOTE | 2016-11-14 11:45 | NUR ---
PT RESTING IN ROOM, FAMILY AT BEDSIDE. NO COMPLAINTS AT THIS TIME. CALL LIGHT WITHIN REACH.
[2016-11-14] MEDS ORDERED: ASPIRIN81 MG PO (12:20)
[2016-11-14] MEDS ORDERED: GLUCOPHAGE500 MG PO (12:20)
[2016-11-14] MEDS ORDERED: DETROL2 MG PO (12:20)
[2016-11-14] MEDS ORDERED: HYDROCODONE-APA1 TAB PO (12:20)
[2016-11-14] MEDS ORDERED: FLUTICASONE PRO16 GM NASAL (12:20)
[2016-11-14] MEDS ORDERED: RESTORIL15 MG PO (12:20)
[2016-11-14] MEDS ORDERED: HUMALOG 30100 UNITS/ SC (12:20)
[2016-11-14] MEDS ORDERED: PLAVIX75 MG PO (12:20)
--- NOTE | 2016-11-14 13:08 | NUR ---
CM spoke with patient about discharging home today, imm served. Patient would like to have HH set up when he goes home. Patient picked [facility] and ANDREWS signed. CM will send referral. CM will continue to assist as needed with discharge planning needs.
--- NOTE | 2016-11-14 15:15 | NUR ---
L FOREARM IV D/C'S, 2.5CM CATHETER INTACT. DRSG APPLIED.
--- NOTE | 2016-11-14 16:22 | NUR ---
DISCHARGED TO HOME WITH FAMILY AMBULATORY. DISCHARGE INSTRUCTIONS GIVEN BOTH VERBALLY, AND WRITTEN. ALL QUESTIONS ANSWERED. BOTH PATIENT AND VERBALIZED UNDERSTANDING OF SAME. NEEDED PRESCRIPTIONS GIVEN TO PATIENT. ALL BELONGINGS SENT WITH PATIENT.
== END 2016-11-14 16:21 | disposition home health service (06) | DRG 270 ==
LOC: D.MS 17:13
PROVIDERS: Family Medicine; General Practice; ADMIT Family Medicine
PROC: 04CK3ZZ Extirpation of Matter from Right Femoral Artery, Percutaneous Approach (ICD-10-PCS; 2016-11-10)
PROC: 04CM3ZZ Extirpation of Matter from Right Popliteal Artery, Percutaneous Approach (ICD-10-PCS; 2016-11-10)
PROC: 04CP3ZZ Extirpation of Matter from Right Anterior Tibial Artery, Percutaneous Approach (ICD-10-PCS; 2016-11-10)
PROC: 047P3ZZ Dilation of Right Anterior Tibial Artery, Percutaneous Approach (ICD-10-PCS; principal; 2016-11-10 13:15)
DX: I70.268 Atherosclerosis of native arteries of extremities with gangrene, other extremity (principal); E43 Unspecified severe protein-calorie malnutrition; Z68.1 Body mass index [BMI] 19.9 or less, adult; L97.519 Non-pressure chronic ulcer of other part of right foot with unspecified severity; I10 Essential (primary) hypertension; Z79.4 Long term (current) use of insulin; Z86.73 Personal history of transient ischemic attack (TIA), and cerebral infarction without residual deficits; J45.909 Unspecified asthma, uncomplicated; Z87.891 Personal history of nicotine dependence; E11.65 Type 2 diabetes mellitus with hyperglycemia

== ENCOUNTER → 2016-12-05 16:07 | Outpatient (CLI) | payer MEDICARE ==
[2016-11-05 10:56] VITALS: BMI 18.6
[~2016-12-05 16:07] MED LIST changes: +ASPIRIN81 MG PO; +DETROL2 MG PO; +FLUTICASONE PRO16 GM NASAL; +GLUCOPHAGE500 MG PO; +HUMALOG 30100 UNITS/ SC; +PLAVIX75 MG PO; +RESTORIL15 MG PO
== END | disposition home or self-care (01) ==
LOC: D.LAB 16:07
DX: R19.7 Diarrhea, unspecified (principal)

== ENCOUNTER → 2017-01-13 07:45 | Outpatient (CLI) | payer MEDICARE ==
[2016-11-05 10:56] VITALS: BMI 18.6
[~2017-01-13 07:45] MED LIST changes: +EFFEXOR75 MG PO; +FLAGYL500 MG PO; +HYDROCODON-ACE1 EAC7 PO; +NEURONTIN 300300 MG PO; +OMEPRAZOLE20 M1 PO; +PROBIOTIC1 EAC1 PO
[2017-01-13 08:22] LABS: BASOPHILS 0.2 % (0-2); EOSINOPHILS 1.7 % (0-7); HEMOGLOBIN 12.9 g/dL (13.5-17.5); IMMATURE GRANULOCYTES 0.1 % (0-5); LYMPHOCYTES 42.7 % (15-50); MCH 29.6 pg (26.0-34.0); MCHC 33.1 g/dL (31.0-37.0); MCV 89.4 fL (80.0-100.0); MEAN PLATELET VOLUME 9.9 fL (7.4-10.4); MONOCYTES 6.6 % (2-11); NEUTROPHILS 48.7 % (40-80); RBC 4.36 10x6/uL (4.20-6.10); RDW 14.1 % (11.5-14.5); WBC 8.4 10x3/uL (4.8-10.8)
[2017-01-13 08:30] LABS: PLATELET COUNT 260 10x3/uL (130-400)
[2017-01-13 08:43] LABS: ALBUMIN 2.8 g/dL (3.4-5.0); ALKALINE PHOSPHATASE 59 U/L (46-116); ALT (SGPT) 14 U/L (10-68); BILIRUBIN - TOTAL 0.19 mg/dL (0.2-1.3); C-REACTIVE PROTEIN 0.5 mg/dL (0.0-0.9); CALC OSMOLALITY 281 mosm/kg (275-300); CALCIUM 8.8 mg/dL (8.5-10.1); CHLORIDE - SERUM 105 mmol/L (98-107); CREATININE - SERUM 0.8 mg/dL (0.6-1.3); POTASSIUM - SERUM 4.1 mmol/L (3.5-5.1); PROTEIN - SERUM 6.6 g/dL (6.4-8.2); SODIUM 141 mmol/L (136-145); UREA NITROGEN 9 mg/dL (7-18); eGFR NON AFRICAN AMERICAN > 90 mL/min (90-120)
[2017-01-13 08:48] LABS: GLUCOSE 131 mg/dL (74-106)
== END | disposition home or self-care (01) ==
LOC: D.LAB 07:45 → D.US 08:00 → D.NM 08:30
PROVIDERS: Internal Medicine Gastroenterology
DX: R10.9 Unspecified abdominal pain (principal); R11.2 Nausea with vomiting, unspecified; R63.4 Abnormal weight loss

== ENCOUNTER 2017-01-30 16:53 | Inpatient (IN) | payer MEDICARE ==
--- NOTE | ~2017-01-30 | HEMODYNAMI ---
PATIENT:DESTINY BROOKS MEDICAL RECORD: [id number] : 37 LOCATION:[facility] D.2127 ADMISSION DATE: 01/30/17 Generatedon:02/01/201717:14 Patient name: DESTINY BROOKS Patient #: [id number] SSN: : 1935 Date of study: 02/01/2017 Page: Of Hemodynamic Procedure Report Patient Data Patient Demographics Procedure consent was obtained First Name: DESTINY Gender: Male Last Name: TODD : 1935 Patient #: [id number] Age: 81 year(s) Race: Unknown Additional ID: [id number] Contact details [address]: [address] [place] [address] State: [place] City: [place] Zip code: [address] Admission Admission Data Admission Date: 01/30/2017 Admission Time: 23:41 Room #: D.2127 Procedure Procedure Types Cath Procedure Peripheral Cath Diagnostic Procedure Miscellaneous Procedure Description Procedure Date Procedure Date: 02/01/2017 Procedure Start Time: 14:52 Procedure Staff Name Function Geovany Solomon RT Monitor José Luis Stallings MD Performing Physician Rosalina Jensen RT Scrub Cele Cooney RN Nurse Procedure Data Cath Procedure Fluoroscopy Diagnostic fluoroscopy Total fluoroscopy Time: 0 time: 0 min min Diagnostic fluoroscopy Total fluoroscopy dose: 212 dose: 212 mGy mGy Contrast Material Contrast Material Type Amount (ml) Isovue 300 200 Entry Location Entry Primary Successful Side Size Upsize 1 Upsize Entry Closure [place] ccessful Closure Location (Fr) (Fr) 2 (Fr) Remarks Device Remarks Femoral Left 5 Fr 6 Fr Exoseal artery Mid-Length Diagnostic catheters Device Type Used For End Catheter Placement Merit ULTRA BOLUS FLUSH 5Fr 65CM catheter Procedure Medications Medication Administration Route Dosage Versed I.V. 1 mg Fentanyl I.V. 50 mcg Versed I.V. 1 mg Fentanyl I.V. 50 mcg Versed I.V. 0.5 mg Fentanyl I.V. 25 mcg Versed I.V. 1 mg Fentanyl I.V. 50 mcg Heparin Bolus I.V. 5000 units Versed I.V. 0.5 mg Fentanyl I.V. 25 mcg Heparin Flush Bag added to field 2 bags (1000units/500ml NS) Heparin Flush Bag added to field 1 bags (1000units/500ml NS) Lidocaine 1% added to field 20 Hemodynamics Rest Heart Rate: 87 (bpm) Snapshots Pre Cath Intra NCS Post Cath Vital Signs Time Heart Resp SPO2 etCO2 NIBP (mmHg) Rhythm Pain Sedation Rate (ipm) (%) (mmHg) Status Level (bpm) 14:36:43 85 21 99 18.7 163/78(129) NSR 0 (11) 10(A) , No pain 14:41:03 84 0 100 28.4 146/79(124) NSR 0 (11) 10(A) , No pain 14:46:02 90 19 17.2 Measuring NSR 0 (11) 10(A) , No pain 14:46:14 91 23 97 6.7 164/80(130) NSR 0 (11) 10(A) , No pain 14:50:32 86 22 100 26.9 170/83(126) NSR 0 (11) 10(A) , No pain 14:54:51 87 24 98 21.7 156/84(124) NSR 0 (11) 10(A) , No pain 14:59:07 88 20 99 31.4 166/80(130) NSR 0 (11) 10(A) , No pain 15:03:26 89 20 100 24.7 161/79(122) NSR 0 (11) 10(A) , No pain 15:07:49 86 20 100 32.9 160/70(114) NSR 0 (11) 10(A) , No pain 15:12:09 89 16 32.9 151/77(124) NSR 0 (11) 10(A) , No pain 15:16:25 86 18 34.4 160/76(121) NSR 0 (11) 10(A) , No pain 15:20:45 15 100 34.4 152/76(119) NSR 0 (11) 10(A) , No pain 15:25:01 88 11 100 31.4 151/74(107) NSR 0 (11) 10(A) , No pain 15:29:17 86 99 27.7 148/75(111) NSR 0 (11) 10(A) , No pain 15:33:31 85 11 100 35.9 154/77(120) NSR 0 (11) 10(A) , No pain 15:37:49 83 13 100 36.7 153/73(124) NSR 0 (11) 10(A) , No pain 15:42:07 89 22 100 35.2 139/73(111) NSR 0 (11) 10(A) , No pain 15:46:17 92 10 99 29.2 156/79(122) NSR 0 (11) 10(A) , No pain 15:50:31 90 17 99 23.9 165/84(120) NSR 0 (11) 10(A) , No pain 15:54:53 89 18 35.2 154/80(124) NSR 0 (11) 10(A) , No pain 15:59:07 92 14 99 31.4 166/83(121) NSR 0 (11) 10(A) , No pain 16:03:29 88 19 99 32.9 161/77(121) NSR 0 (11) 10(A) , No pain 16:07:47 87 11 99 28.4 166/83(123) NSR 0 (11) 10(A) , No pain 16:12:10 83 16 99 25.4 161/74(125) NSR 0 (11) 10(A) , No pain 16:16:28 81 18 98 35.2 156/79(120) NSR 0 (11) 10(A) , No pain 16:20:44 80 13 18.7 155/81(122) NSR 0 (11) 10(A) , No pain 16:25:02 80 18 98 32.2 157/74(123) NSR 0 (11) 10(A) , No pain 16:29:20 78 16 35.1 170/78(134) NSR 0 (11) 10(A) , No pain 16:33:44 80 13 32.1 163/75(129) NSR 0 (11) 10(A) , No pain 16:38:06 79 17 99 32.9 165/72(133) NSR 0 (11) 10(A) , No pain 16:42:24 79 7 23.9 170/84(135) NSR 0 (11) 10(A) , No pain 16:46:49 86 17 100 31.4 175/77(121) NSR 0 (11) 10(A) , No pain 16:51:13 81 13 31.4 179/81(126) NSR 0 (11) 10(A) , No pain 16:55:33 91 12 22.4 166/83(133) NSR 0 (11) 10(A) , No pain 16:59:53 85 18 15.7 156/84(125) NSR 0 (11) 10(A) , No pain 17:04:09 81 14 99 27.6 173/78(134) NSR 0 (11) 10(A) , No pain 17:08:31 86 15 34.4 155/78(114) NSR 0 (11) 10(A) , No pain Medications Time Medication Route Dose Verified Delivered Reason Notes Effe ctiveness by by 14:50:16 Heparin Flush added 2 José Luis Ordonez used for Bag to bags Haylie Stallings MD procedure (1000units/500ml field NS) 14:50:31 Heparin Flush added 1 José Luis Ordonez used for Bag to bags Haylie Stallings MD procedure (1000units/500ml field NS) 14:56:03 Versed I.V. 1 mg José Luis Oakley for Eros Stallings RN sedation 14:56:17 Fentanyl I.V. 50 José Luis Oakley for mcg Eros Stallings RN sedation 15:07:34 Versed I.V. 1 mg José Luis Cele for Eros Stallings RN sedation 15:07:42 Fentanyl I.V. 50 José Luis Cele for mcg Eros Stallings RN sedation 15:23:59 Versed I.V. 0.5 José Luis Cele for mg Eros Stallings RN sedation 15:24:09 Fentanyl I.V. 25 José Luis Cele for mcg RashaadaAnneliser RN sedation 15:34:23 Versed I.V. 1 mg José Luis Cele for RashaadaEros RN sedation 15:34:31 Fentanyl I.V. 50 José Luis Cele for mcg Eros Stallings RN sedation 15:50:02 Heparin Bolus I.V. 5000 José Luis Oakley units Eros Stallings RN, MD 15:50:13 Versed I.V. 0.5 José Luis aOkley for mg Eros Stallings RN sedation 15:50:23 Fentanyl I.V. 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 Start room use. 14:10:14 Time tracking: Regular hours 14:10:21 Plan of Care:Hemodynamics will remain stable., Cardiac rhythm will remain stable., Comfort level will be maintained., Respiratory function will remain adequate., Patient/ family verbilizes understanding of procedure., Procedure tolerated without complication., Recovers from procedure without complications.. 14:10:32 Patient received from Doculynx II to IR Alert and oriented. Tansferred to table in Supine position. 14:10:39 Correct patient and procedure confirmed by team. 14:10:41 Signed procedure consent form obtained from patient. 14:10:42 ECG and BP/O2 sat monitors applied to patient. 14:10:43 Full Disclosure recording started 14:10:44 - 14:10:48 H&P Date Dictated: 02/01/2017 Within 30 days and on chart.. 14:10:49 Pre-op teaching completed and patient verbalized understanding. 14:10:49 Pre-procedure instructions explained to patient. 14:10:53 Family in waiting room. 14:10:56 Patient NPO since Dinner. 14:10:58 Is the patient allergic to Iodine/contrast media? No. 14:11:02 Is patient on blood thinner?Yes 14:11:04 ACC The patient was administered the following blood thiners within the last 24 hours: ACCPlavix 14:11:06 Patient diabetic? Yes. 14:11:07 If diabetic: On Metformin? No 14:11:09 - 14:11:10 ----Pre-sedation anethsthesia assessment.---- 14:11:14 Snore? Yes 14:11:16 Sleep apnea? No 14:11:17 Deviated septum? No 14:11:20 Opens mouth fully? Yes 14:11:22 Sticks out tongue? Yes 14:11:27 Airway obstruction? No ? 14:11:30 Dentures? No ? 14:11:34 Pre procedure: right dorsailis pedis pulse Doppler 14:11:36 Pre procedure: left dorsailis pedis pulse Doppler 14:11:39 Pre procedure: right posterior tibial pulse Doppler 14:11:42 Pre procedure: left posterior tibial pulse Doppler 14:11:45 Alarms reviewed by R. N. 14:11:46 Sharps counted by scrub and verified by R.N. 14:11:51 Bilateral groins area was prepped with chlora-prep and draped in steril e fashion 14:22:52 Use device set IR Diagnostic 14:22:53 Acist Syringe opened to sterile field. 14:22:54 Acist Manifold opened to sterile field. 14:22:54 Acist Hand Control opened to sterile field. 14:22:55 Sterile Angiographic Pack opened to sterile field. 14:22:55 Bag Decanter opened to sterile field. 14:33:59 Patient pain scale 0/10 no pain. 14:34:31 IV patent on arrival in right antecubital with 0.9% NaCl at [facility]. 14:35:30 Vital chart was started 14:35:32 Baseline sample Acquired. 14:35:37 Rhythm: sinus rhythm 14:50:16 Heparin Flush Bag (1000units/500ml NS) 2 bags added to field was administered by José Luis Stallings MD; used for procedure; 14:50:31 Heparin Flush Bag (1000units/500ml NS) 1 bags added to field was administered by José Luis Stallings MD; used for procedure; 14:51:56 Physician arrived 14:51:58 Final Timeout: patient, procedure, and site verified with staff and physician. All members of the team are in agreement. 14:51:58 --------ALL STOP TIME OUT------ 14:52:01 Bilateral groins site verified by team. 14:52:26 Sedation plan: IV Moderate Sedation Versed, Fentanyl 14:52:42 Procedure started. 14:52:48 Local anesthetic to left femerol artery with Lidocaine 1% by José Luis Stallings MD.INITIAL ACCESS ONLY 14:53:00 Cook DOC .035 guide wire opened to sterile field. 14:53:00 Micropuncture VSI 4FR kit opened to sterile field. 14:53:00 TUBING, CONTRAST INJCTN HI PRES opened to sterile field. 14:53:01 Terumo 5Fr Villanueva Sheath opened to sterile field. 14:53:08 A Channelkit ULTRA BOLUS FLUSH 5Fr 65CM catheter was advanced over the wire and used for . 14:56:03 Versed 1 mg I.V. was administered by Cele Cooney RN; for sedation; 14:56:17 Fentanyl 50 mcg I.V. was administered by Cele Cooney RN; for sedation ; 15:00:27 A 5 Fr sheath was inserted into the Left Femoral artery 15:05:53 Terumo TORQUE DEVICE PLASTIC .038 opened to sterile field. 15:07:34 Versed 1 mg I.V. was administered by Cele Cooney RN; for sedation; 15:07:42 Fentanyl 50 mcg I.V. was administered by Ceel Cooney RN; for sedation ; 15:08:52 Terumo 5FR ANGLED 65CM glide catheter opened to sterile field. 15:08:53 Terumo ANGLE 180L glide wire opened to sterile field. 15:21:02 Trailblazer 0.035 catheter opened to sterile field. 15:21:02 Terumo ANGLE 260cm glide wire opened to sterile field. 15:23:59 Versed 0.5 mg I.V. was administered by Ceel Cooney RN; for sedation; 15:24:09 Fentanyl 25 mcg I.V. was administered by Cele Cooney RN; for sedation ; 15:27:47 Sheath upsized to a 6 Fr Mid-Length. 15:27:59 Cook ALEGRE 260 guide wire opened to sterile field. 15:28:01 Terumo 6Fr Villanueva Destination Sheath opened to sterile field. 15:30:35 [place] Sci Choice PT Extra Support J 300cm .014 gu opened to sterile field. 15:34:23 Versed 1 mg I.V. was administered by Cele Cooney RN; for sedation; 15:34:31 Fentanyl 50 mcg I.V. was administered by Cele Cooney RN; for sedation ; 15:47:20 [place] LX-C catheter opened to sterile field. 15:50:02 Heparin Bolus 5000 units I.V. was administered by Cele Cooney RN; ; 15:50:13 Versed 0.5 mg I.V. was administered by Cele Cooney RN; for sedation; 15:50:23 Fentanyl 25 mcg I.V. was administered by Cele Cooney RN; for sedation ; 15:50:47 Lidocaine 1% 20ml vial added to field was administered by José Luis Stallings MD; for local anesthetic; 16:09:01 Terumo 6Fr Villanueva Sheath opened to sterile field. 16:33:[address] Cook [address] 260 .035 glide wire opened to sterile field. 16:43:24 Cook ALEGRE 180 guide wire opened to sterile field. 16:47:24 Cordis 6Fr Exoseal opened to sterile field. 16:48:16 Sheath removed intact; hemostasis achieved with Exoseal to the Left Femoral artery. 16:48:20 Procedure ended.(Physican Out) 16:50:04 Fluoroscopy time 00.00 minutes. 16:50:10 Fluoroscopy dose: 212 mGy 16:50:10 Flurop Dose total: 212 17:06:54 Contrast amount:Isovue 300 200ml. 17:06:56 Sharps counted by scrub and verified by R.N. 17:06:59 Insertion/operative site no bleeding no hematoma. 17:07:05 Post-op/insertion site Left Femoral artery dressed using a 4 x 4 and Tegaderm. 17:07:09 Post left femerol artery:stable 17:07:15 Post procedure: right dorsailis pedis pulse 1+ Palpable, but thready & weak; easily obliterated. 17:07:22 Post procedure: right posterior tibial pulse Doppler. 17:07:25 Post procedure: left dorsailis pedis pulse Doppler. 17:07:28 Post procedure: left posterior tibial pulse Doppler. 17:09:16 Post procedure rhythm: unchanged. 17:09:18 Procedure and supply charges have been captured, reviewed, submitted an d are correct. 17:09:18 Post procedure instruction explained to patient.Patient verbalizes understanding. 17:10:43 Report given to [facility] II. 17:10:47 Patient transfered to [facility] II with Bed. 17:11:07 Full Disclosure recording stopped Device Usage Item Name Manufacture Quantity Catalog Number Hospital Part Current Min imal Lot# / Charge Number Stock Stock Serial# Code Acist Syringe Acist 1 14915 393840 [id number] 087019 20 Medical Systems Summify Acist Hand Acist 1 79316 578189 167525 547669 5 Control Kovio Systems Summify Acist Acist 1 74762 742815 566976 760819 5 Manifold Medical Systems Inc Bag Decanter Microtek 1 2002S 295003 68744 770501 5 Medical Inc. Sterile Cardinal 1 [id number] 762652 716469 5 Angiographic Health Pack TUBING, Merit 1 [id number] 265997 726411 518062 5 CONTRAST Medical INJCTN HI PRES Micropuncture VSI VASCULAR 1 7266V 410419 060307 5 VSI 4FR kit SOLUTIONS [employer] DOC .035 [facility] 1 B01527 578142 618842 5 1228958 guide wire Terumo 5Fr Terumo 1 [id number] 670552 715147 407001 40 Villanueva Sheath Merit ULTRA Merit 1 [id number] 854672 108269 5 BOLUS FLUSH Medical 5Fr 65CM catheter Terumo TORQUE [place] 1 TD01 154337 554623 101616 5 DEVICE Scientific PLASTIC .038 Terumo 5FR Terumo 1 CG507 113949 369421 5 ANGLED 65CM glide catheter Terumo ANGLE Terumo 1 [id number] 797916 067494 832843 5 180L glide wire Terumo ANGLE Terumo 1 CK9179 081409 946103 796036 5 260cm glide wire Trailblazer Medtronic 1 ASC-035-135 480996 37934 073076 5 0.035 catheter Cook [facility] Medical 1 D26174 584419 332086 5 [id number] 260 guide wire Terumo 6Fr Terumo 1 RSR01 625864 67302 311248 5 Villanueva Destination Sheath [place] Sci [place] 1 [id number] 936381 199746 697521 5 [id number] Choice PT Scientific Extra Support J 300cm .014 gu [place] Ev3 1 THS-LX-C 896222 159512 5 LX-C catheter Terumo 6Fr Terumo 1 IPZ485 095111 303569 050231 40 Villanueva Sheath [facility] 1 V35982 419404 262463 149434 5 [id number] ROADRUNNER 260 .035 glide wire [facility] 1 H56013 454558 973454 5 4694980 180 guide wire Cordis 6Fr Cardinal 1 EX600 100587 591508 750164 10 [id number] [facility] Health Signature Audit Boneste[place] Stage Time Signature Unsigned Intra-Procedure 02/01/2017 Geovany 5:14:36 PM [place] RT (R) (CV) Signatures Monitor : Geovany Signature : Juanito RT Date : Time : [place] [id number] [place] [address]
[~2017-01-30 16:53] MED LIST changes: -EFFEXOR75 MG PO; -FLAGYL500 MG PO; -HYDROCODON-ACE1 EAC7 PO; -NEURONTIN 300300 MG PO; -OMEPRAZOLE20 M1 PO; -PROBIOTIC1 EAC1 PO
[2017-01-30 22:56] LABS: BASOPHILS 0.2 % (0-2); EOSINOPHILS 1.2 % (0-7); HEMATOCRIT 39.7 % (42.0-54.0); IMMATURE GRANULOCYTES 0.1 % (0-5); LYMPHOCYTES 28.8 % (15-50); MCH 29.3 pg (26.0-34.0); MCHC 32.7 g/dL (31.0-37.0); MCV 89.4 fL (80.0-100.0); MEAN PLATELET VOLUME 9.6 fL (7.4-10.4); MONOCYTES 9.5 % (2-11); NEUTROPHILS 60.2 % (40-80); RBC 4.44 10x6/uL (4.20-6.10); RDW 14.1 % (11.5-14.5); WBC 9.5 10x3/uL (4.8-10.8)
[2017-01-30 23:01] LABS: PLATELET COUNT 349 10x3/uL (130-400)
[2017-01-30 23:16] LABS: ALBUMIN 2.7 g/dL (3.4-5.0); ALKALINE PHOSPHATASE 54 U/L (46-116); ALT (SGPT) 15 U/L (10-68); BILIRUBIN - TOTAL 0.12 mg/dL (0.2-1.3); CALC OSMOLALITY 289 mosm/kg (275-300); CALCIUM 8.8 mg/dL (8.5-10.1); CARBON DIOXIDE 35.1 mmol/L (21.0-32.0); CHLORIDE - SERUM 105 mmol/L (98-107); CREATININE - SERUM 0.9 mg/dL (0.6-1.3); GLUCOSE 107 mg/dL (74-106); POTASSIUM - SERUM 4.3 mmol/L (3.5-5.1); PROTEIN - SERUM 6.7 g/dL (6.4-8.2); SODIUM 146 mmol/L (136-145); UREA NITROGEN 10 mg/dL (7-18); eGFR NON AFRICAN AMERICAN 86 mL/min (90-120)
[2017-01-31] VITALS (7 sets, daily range): BP systolic 117–187; BP diastolic 51–72; BMI 17.2
[2017-01-31 00:43] LABS: CKMB 0.5 U/L (0.0-3.6); CREATINE KINASE 40 UL (21-232); TROPONIN-I < 0.017 ng/mL (0.000-0.060)
--- NOTE | 2017-01-31 00:44 | NUR ---
RECIEVED TO ROOM 2126 FROM E.R VIA . PT A&O. VITALS STABLE, RESPERATIONS EVEN ON RA. IV TO RIGHT AC WITH 1/2 NS INFUSING AT 125 CC/HR. SITE CLEAN AND DRY. PT C/O PAIN TO RIGHT FOOT, SORES NOTED IN BETWEEN FOURT AND FIFTH TOES AND ON BOTTOM OF RIGHT FOOT. PT STATED THAT HE HAS BEEN SEEING DR JUAN AT THE WOUND CLINIC FOR THESE SORES. PT RATES PAIN AT AN 8 ON PAIN SCALE. INFORMED PT THAT I WILL HAVE TO CHECK ORDERS BEFORE I CAN BRING IN ANY PAIN MEDICINE, FRESH ICE WATER GIVEN, NO OTHER NEEDS VOICED AT THIS TIME.
[2017-01-31] MEDS ORDERED: NEURONTIN 300300 MG PO (01:22)
--- NOTE | 2017-01-31 02:03 | NUR ---
MORPHINE 4 MG GIVEN TO RIGHT AC IV FOR C/O PAIN TO RIGHT FOOT, RATES PAIN AT AN 8 ON PAIN SCALE.
--- NOTE | 2017-01-31 05:00 | NUR ---
PT RESTING IN BED WITH NO DISTRESS. NO NEEDS VOICED. CPOC.
[2017-01-31 07:20] LABS: CKMB 0.6 U/L (0.0-3.6); CREATINE KINASE 36 UL (21-232)
[2017-01-31 07:33] LABS: TROPONIN-I < 0.017 ng/mL (0.000-0.060)
--- NOTE | 2017-01-31 10:19 | NUR ---
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 He is currently a patient of [facility] wound clinic / Dr. Alcocer for outpatient wound care. Dr. Cortes in room speaking with patient at this time. Betadine was applied to wounds, covered with non-adherent gauze and wrapped with kerlix. Stockingette applied to secure dressing. No new orders at this time. Wound care will continue monitoring.
[2017-01-31 10:20] LABS: BASOPHILS 0.2 % (0-2); EOSINOPHILS 1.6 % (0-7); HEMATOCRIT 39.7 % (42.0-54.0); HEMOGLOBIN 12.8 g/dL (13.5-17.5); IMMATURE GRANULOCYTES 0.1 % (0-5); LYMPHOCYTES 32.5 % (15-50); MCHC 32.2 g/dL (31.0-37.0); MEAN PLATELET VOLUME 10.1 fL (7.4-10.4); MONOCYTES 8.7 % (2-11); NEUTROPHILS 56.9 % (40-80); PLATELET COUNT 385 10x3/uL (130-400); RBC 4.41 10x6/uL (4.20-6.10); RDW 14.2 % (11.5-14.5)
[2017-01-31] MEDS ORDERED: OMEPRAZOLE20 M1 PO (13:08)
[2017-01-31] MEDS ORDERED: PROBIOTIC1 EAC1 PO (13:12)
[2017-01-31] MEDS ORDERED: EFFEXOR75 MG PO (13:12)
[2017-01-31] MEDS ORDERED: FLAGYL500 MG PO (13:32)
[2017-01-31 13:42] LABS: CKMB 0.7 U/L (0.0-3.6); CREATINE KINASE 40 UL (21-232)
[2017-01-31 13:44] LABS: TROPONIN-I < 0.017 ng/mL (0.000-0.060)
--- NOTE | 2017-01-31 17:42 | NUR ---
ALERT AND ORIENTED X4. RESTING IN BED. AT BEDSIDE. INITIATE CONTACT ISOLATION PRECAUTIONS PER DOCTOR'S ORDER. STOOL COLLECTION CONTAINER PLACED IN ROOM. INFORM PATIENT AND FAMILY A STOOL SPECIMEN NEEDS TO BE COLLECTED FOR TESTING AND VISITORS TO WEAR GOWN AND GLOVES WHEN ENTERING ROOM. DENIES ANY NEEDS AT THIS TIME. BED LOCKED AND LOW. CALL LIGHT IN REACH. TWO SIDERAIL UP.
--- NOTE | 2017-01-31 18:30 | NUR ---
STOOL COLLECTED AND TAKEN TO LAB.
--- NOTE | 2017-01-31 19:45 | NUR ---
ROUNDING NOTE: AT CHANGE OF SHIFT, GI DOCTOR WAS IN WITH PATIENT AND FAMILY FOR AN HOUR. PT HAS IV TO RIGHT AC WITH NS RUNNING AT 75CC/HR. PER MD ORDERS, IVF WERE DISCONTINUED, SO IVF D/C'D AND PT NOW SALINE LOC. PT IS ALERT AND ORIENTED X 3, DENIES ANY NEEDS. HE IS ON CONTACT ISOLATION FOR CDIFF PRECAUTIONS. FIRST STOOL CX NEGATIVE FOR TOXIN & ANTIGEN. PT IS ALSO HAVE FORMED STOOLS. QUESTIONED THE NEED FOR ISOLATION WITH THE GI DOCTOR. PLAN IS TO REPEAT STOOL CX AND KEEP PT ON CONTACT ISOLATION FOR NOW. WILL CONT TO MONITOR.
[2017-02-01] VITALS: BP 136/63
[2017-02-01 04:00] VITALS: BP 144/62
[2017-02-01 05:50] LABS: BASOPHILS 0.2 % (0-2); HEMOGLOBIN 13.5 g/dL (13.5-17.5); IMMATURE GRANULOCYTES 0.2 % (0-5); LYMPHOCYTES 29.7 % (15-50); MCH 28.8 pg (26.0-34.0); MCHC 32.1 g/dL (31.0-37.0); MCV 89.6 fL (80.0-100.0); MEAN PLATELET VOLUME 10.3 fL (7.4-10.4); MONOCYTES 7.5 % (2-11); NEUTROPHILS 60.4 % (40-80); PLATELET COUNT 422 10x3/uL (130-400); RBC 4.69 10x6/uL (4.20-6.10); RDW 14.4 % (11.5-14.5); WBC 8.8 10x3/uL (4.8-10.8)
--- NOTE | 2017-02-01 05:57 | NUR ---
PT HAS BEEN SLEEPING THROUGHOUT THE NIGHT. ASSISTED PT TO THE BATHROOM X1. PT WAS A LITTLE UNSTEADY WHEN FIRST GETTING UP. PT HAS ORDERS TO BE UP AD PAULINO. WILL CONT TO MONITOR.
[2017-02-01 06:00] LABS: PROTIME 13.1 SECONDS (11.6-15.0)
[2017-02-01 06:03] LABS: ALBUMIN 2.4 g/dL (3.4-5.0); ALKALINE PHOSPHATASE 45 U/L (46-116); ALT (SGPT) 14 U/L (10-68); AMYLASE - SERUM 27 U/L (25-115); CALCIUM 8.7 mg/dL (8.5-10.1); CARBON DIOXIDE 30.5 mmol/L (21.0-32.0); CHLORIDE - SERUM 105 mmol/L (98-107); CHOL - HDL RATIO 2.7 ratio (2.3-4.9); CHOLESTEROL, TOTAL 96 mg/dL (0-200); CREATININE - SERUM 0.8 mg/dL (0.6-1.3); HDL CHOLESTEROL 36 mg/dL (32-96); LDL CHOLESTEROL 52 mg/dL (0-100); LDL-HDL RATIO 1.4 ratio (1.5-3.5); POTASSIUM - SERUM 4.1 mmol/L (3.5-5.1); PRE-ALBUMIN 12.9 mg/dL (18.0-35.7); PROTEIN - SERUM 6.2 g/dL (6.4-8.2); SODIUM 141 mmol/L (136-145); TRIGLYCERIDE 40 mg/dL (30-200); UREA NITROGEN 9 mg/dL (7-18); eGFR NON AFRICAN AMERICAN > 90 mL/min (90-120)
[2017-02-01 06:18] LABS: CALC OSMOLALITY 286 mosm/kg (275-300); GLUCOSE 217 mg/dL (74-106); LIPASE 37 U/L (73-393)
--- NOTE | 2017-02-01 06:54 | NUR ---
NOT ABLE TO COLLECT STOOL SPECIMEN B/C PT HAS NOT HAD A BM DURING MY SHIFT.
[2017-02-01 07:45] VITALS: BP 134/60
--- NOTE | 2017-02-01 09:18 | NUR ---
PT REQUESTING TO HAVE BLOOD SUGAR CHECKED SINCE, HE RECEIVED SOME INSULIN THIS AM AND IS NOW NPO. BLOOD SUGAR CHECKED AT THIS TIME. IT WAS 184, PT IN BED, DENIES ANY OTHER NEEDS AT HIS TIME. CALL LIGHT IN REACH, NAD NOTED, WILL CONTINUE TO MONITOR.
--- NOTE | 2017-02-01 11:16 | NUR ---
BLOOD SUGAR OF 152, NO COVERAGE NEEDED PER S/S. ASKED PT IF HE HAS HAD A BM TODAY. PT STATED THAT NOT TODAY. AND THAT HE DOES NOT FEEL LIKE HE NEEDS TO HAVE ONE. PT DENIES ANY NEEDS AT THIS TIME. PT'S AT BEDSIDE, CALL LIGHT IN REACH, NAD NOTED, WILL CONTINUE TO MONITOR.
[2017-02-01 12:53] VITALS: BP 142/89
--- NOTE | 2017-02-01 14:07 | NUR ---
CONSENTS SIGNED FOR AFRO AND PLACED ON CHART. KIRSTEN FROM IR HERE TO TRANSFER PT TO IR, VIA BED, NAD NOTED.
--- NOTE | 2017-02-01 17:16 | NUR ---
PT TRANSFERED BACK FROM IR. VITAL SIGNS STABLE, PT A/O X4. NO BLEEDING OR SIGNS OF HEMATOMA NOTED TO LT GROIN. PEDAL PULSE TO RT LEG PALPABLE. PT DENIES ANY PIN AT THIS TIME. PLACED ON FREQUENT VITAL SIGNS. PT DENIES ANY NEEDS AT THIS TIME. CALL LIGHT IN REACH, NAD NOTED, WILL CONTINUE TO MONITOR.
--- NOTE | 2017-02-01 18:16 | NUR ---
DR. SINGH AT BEDSIDE TO SPEAK WITH PT AND PT'S . DR. SINGH GAVE VERBAL ORDER FOR PLAVIX AND ASPIRIN TO BE GIVEN AFTER 2100 IF NO BLEEDING OR HEMATOMA NOTED TO LT GROIN. IF BRUISING OCCURS TO WAIT TO GIVE ASPIRIN AND PLAVIX UNTIL AM. BLOOD SUGAR OF 206, 4UNITS OF HUMULIN R GIVEN PER S/S. ALSO ADMINISTERED MEDICATIONS SCHEDULED TO BE GIVEN DAILY. ADMINISTERED OXI IR FOR PAIN LEVEL OF 6/10. PT REQUESTED A TURKEY SANDWICH WITH CHEESE AND TO HAVE IT HEATED UP ENOUGH TO MELT CHEESE. PT DENIES ANY OTHER NEEDS AT THIS TIME. CALL RAS HUFF, AT BEDSIDE, NAD NOTED, WILL CONTINUE TO MONITOR.
[2017-02-01 19:00] VITALS: BP 135/68
--- NOTE | 2017-02-01 19:42 | NUR ---
RESUMED CARE OF PT, LYING IN BED RESPIRATIONS EVEN AND UNLABORED ON ROOM AIR. LEFT GROIN DRSG C/D/I, RIGHT PEDAL PULSE PALPABLE. RIGHT AC INFUSING NS @ 100. FAMILY AT BEDSIDE. CALL LIGHT IN REACH. WILL CONTINUE TO MONITOR. SEE NURSE ASSESSMENT.
[2017-02-02] VITALS: BP 116/55
--- NOTE | 2017-02-02 05:18 | NUR ---
CALL LIGHT IN REACH, WILL CONTINUE WITH PLAN OF CARE.
[2017-02-02 05:29] VITALS: BP 100/54
[2017-02-02 05:40] LABS: BASOPHILS 0.1 % (0-2); EOSINOPHILS 0.3 % (0-7); HEMATOCRIT 36.9 % (42.0-54.0); IMMATURE GRANULOCYTES 0.1 % (0-5); LYMPHOCYTES 22.6 % (15-50); MCHC 32.5 g/dL (31.0-37.0); MCV 89.1 fL (80.0-100.0); MEAN PLATELET VOLUME 9.6 fL (7.4-10.4); MONOCYTES 8.8 % (2-11); NEUTROPHILS 68.1 % (40-80); PLATELET COUNT 345 10x3/uL (130-400); RBC 4.14 10x6/uL (4.20-6.10); RDW 14.1 % (11.5-14.5); WBC 10.1 10x3/uL (4.8-10.8)
[2017-02-02 06:00] LABS: ALBUMIN 2.4 g/dL (3.4-5.0); ALKALINE PHOSPHATASE 48 U/L (46-116); ALT (SGPT) 13 U/L (10-68); BILIRUBIN - TOTAL 0.17 mg/dL (0.2-1.3); CALCIUM 8.5 mg/dL (8.5-10.1); CARBON DIOXIDE 31.6 mmol/L (21.0-32.0); CHLORIDE - SERUM 105 mmol/L (98-107); CREATININE - SERUM 0.8 mg/dL (0.6-1.3); POTASSIUM - SERUM 4.1 mmol/L (3.5-5.1); PROTEIN - SERUM 6.1 g/dL (6.4-8.2); SODIUM 141 mmol/L (136-145); UREA NITROGEN 10 mg/dL (7-18); eGFR NON AFRICAN AMERICAN > 90 mL/min (90-120)
[2017-02-02 06:03] LABS: CALC OSMOLALITY 279 mosm/kg (275-300); GLUCOSE 100 mg/dL (74-106)
[2017-02-02 08:07] VITALS: BP 139/64
--- NOTE | 2017-02-02 09:43 | NUR ---
RESTING QUIETLY RESP UNLABORED DENIES ANY NEEDS AT THIS TIME
--- NOTE | 2017-02-02 10:15 | NUR ---
ASSESSMENT COMPLETED. DENIES ANY NEEDS. PT ISIN ISOLATION. DRSG TO RIGHT GROIN DRY AND INTACT. DRSG TO RIGHT FOOT CLEAN AND DRY. PT IS UP AB PAULINO. RIGHT AC SL. UP AB PAULINO. SR UP WITH CALL LIGHT IN REACH. WILL MONITOR
[2017-02-02 10:19] LABS: CEA 2.5 ng/mL (0.0-4.7)
[2017-02-02 11:53] VITALS: BP 137/60
--- NOTE | 2017-02-02 18:36 | NUR ---
HOB UP. DENIES ANY NEEDS. IV INFUSING WELL. WILL MONITOR
--- NOTE | 2017-02-02 19:51 | NUR ---
PT IN BED RESTING QUEITLY. IV AT KVO. DENIES ANY PAIN OR NEEDS AT THIS TIME. BED IN LOW POSITION, CALL LIGHT WITHIN REACH.
[2017-02-02 20:24] VITALS: BP 142/80
[2017-02-03 00:12] VITALS: BP 129/79
[2017-02-03 05:17] VITALS: BP 139/53
--- NOTE | 2017-02-03 07:30 | NUR ---
REPORT RECEIVED. RR EVEN AND UNLABORED, PT REQUESTING PAIN MED. WILL GIVE, ASSESSMENT PERFORMED, STOOL SAMPLE COLLECTED. PT ALERT AND ORIENTED. WILL CTM.
[2017-02-03 08:22] VITALS: BP 131/60
[2017-02-03 12:39] VITALS: BP 134/59
--- NOTE | 2017-02-03 14:13 | NUR ---
Nutrition Follow Up: Pt reported that his appetite is good. He said that he is drinking Tyler and Glucerna. Pt said that his diarrhea is getting better. Pt is eating 50% meal avg on a diabetic diet. He is receiving Glucerna TID and Tyler BID. +BM 02/01/17. Wt stable. Labs reviewed - Glucose elevated. Meds noted. Rec continue current diet, supplement regimen. RD following.
--- NOTE | 2017-02-03 14:30 | NUR ---
PTS IV OUT WITH CATHETER TIP INTACT. RESITED 20G IV TO RIGHT FA X1 STICK. WILL CTM.
--- NOTE | 2017-02-03 16:56 | EC ---
PATIENT:DESTINY BROOKS DATE OF SERVICE: 01/30/17 SEX: M MEDICAL RECORD: [id number] DATE OF : 37 LOCATION:D.M2 D.212 AGE OF PATIENT: 81 ADMISSION DATE: 01/30/17 REFERRING PHYSICIAN: INTERPRETING PHYSICIAN: PHOEBE MORALES MD ECHOCARDIOGRAM REPORT ECHO CHARGES 4 ECHO COMPLETE CLINICAL DIAGNOSIS: MURMUR ECHOCARDIOGRAPHIC MEASUREMENTS (adult normal given) AC root (d.<3.7cm) 3.3 cm LV Septum d (<1.2 cm> 1.0 cm Valve Excursion 0.9 cm LV Septum (systole) 1.6 cm Left Atria (s.<4.0cm> 2.2 cm LVPW d(<1.2cm) 1.1 cm RV (d.<2.3cm) 2.2 cm LVPW (sytole) 1.4 cm LV diastole(<5.6CM) 5.7 cm MV E-F(>70mm/sec) cm LV systole 3.8 cm LVOT Diameter 1.7 cm MV exc.(>10mm) cm Est.ejection fraction (50-75%) % Pericardial Effusion N DOPPLER: LVIT cm/sec A 127 cm/sec E 67.0 cm/sec LA cm/sec RVSP 30.0 mmHg LVOT 117 cm/sec AOP1/2T m/s Asc. Ao 320 cm/sec RVOT 76.0 cm/sec RA cm/sec PA 130 cm/sec AV Gradient Peak 41.0 mmHg AV Mean 22.0 mmHg AV Area 0.7 cm MV Gradient Peak 6.8 mmHg MV Mean 2.9 mmHg MV Area cm COMMENTS: Psychometrist: Suzanne BARROSOE Firer Helper: 1 Dr. Morales TAPE# PACS DATE OF SERVICE: 02/01/2017 FINDINGS: 1. Left ventricle chamber size is within normal limits. Left ventricular systolic function is normal. Overall ejection fraction estimated at 55%. 2. Left atrium, right atrium, and right ventricular chamber sizes are within normal limits. 3. Valvular structures: Aortic valve demonstrates moderate to severe calcific aortic stenosis. Valve area calculates to 0.7 cm-squared and gradient of 41 mm across the valve. The remaining valvular structures have normal structure and ECHOCARDIOGRAM REPORT [id number] DESTINY BROOKS motion. 4. Doppler interrogation elsewise reveals only trace tricuspid regurgitation. No other valvular insufficiency or stenosis and pulmonary systolic pressure is normal estimated 30 mmHg. 5. No evidence of pericardial effusion or left ventricular thrombus. TRANSINT:[id number] Voice Confirmation ID: [id number] DOCUMENT ID: [id number] PHOEBE MORALES MD at 1656 CC: [id number] DICTATION DATE: 02/01/17 1342 TOOL RADIAL DRILL PRESS SET UP OPERATOR: 02/01/17 1436 ADM IN [place] [id number] [place] [id number]
--- NOTE | 2017-02-03 18:27 | NUR ---
PT RESTING QUIELTY, RR EVEN AND UNLABORED. PT DENIES NEEDS AT THIS TIME. WILL GIVE REPORT ON PT CONDTION FOR THE DAY.
[2017-02-03 20:00] VITALS: BP 132/62
--- NOTE | 2017-02-03 21:24 | NUR ---
PT LYING IN BED, AWAKE, ALERT, ORIENTED, ASKING FOR PRN PAIN MEDICATION. PT IS IN NO ACUTE DISTRESS. WILL CONTINUE TO MONITOR CLOSELY AND CONTINUE PT CARE.
[2017-02-04] VITALS: BP 107/58
[2017-02-04 04:00] VITALS: BP 132/62
--- NOTE | 2017-02-04 05:07 | NUR ---
WAS HERE EARLIER AND STATED PT IS READY TO PROCEED WITH SURGERY TODAY. HAS ALSO ASKED THAT WE CHANGE PTS BED FROM THE BROWN BED TO A SAFER AND EASIER TO ACCESS AND USE WHITE BED. PT IS RESTING COMFORTABLY AT THIS TIME. DID LEAVE AROUND 02:30 THIS A.M. SO THAT SHE CAN RETURN LATER THIS MORNING. CONTINUE TO MONITOR CLOSELY.
--- NOTE | 2017-02-04 05:42 | NUR ---
PT HAS BEEN TRANSFERRED TO A WHITE BED WITHOUT ANY DIFFICULTY. PT IS CURRENTLY RESTING COMFORTABLY, DENIES ANY NEEDS. CONTINUE TO MONITOR CLOSELY.
[2017-02-04 06:47] LABS: BASOPHILS 0.3 % (0-2); HEMATOCRIT 35.1 % (42.0-54.0); HEMOGLOBIN 11.4 g/dL (13.5-17.5); IMMATURE GRANULOCYTES 0.1 % (0-5); LYMPHOCYTES 35.4 % (15-50); MCH 28.6 pg (26.0-34.0); MCHC 32.5 g/dL (31.0-37.0); MCV 88.2 fL (80.0-100.0); MEAN PLATELET VOLUME 9.6 fL (7.4-10.4); MONOCYTES 8.5 % (2-11); NEUTROPHILS 52.7 % (40-80); PLATELET COUNT 335 10x3/uL (130-400); RBC 3.98 10x6/uL (4.20-6.10); RDW 13.9 % (11.5-14.5); WBC 8.7 10x3/uL (4.8-10.8)
[2017-02-04 06:53] LABS: CALC OSMOLALITY 283 mosm/kg (275-300); CALCIUM 8.2 mg/dL (8.5-10.1); CARBON DIOXIDE 30.5 mmol/L (21.0-32.0); CHLORIDE - SERUM 105 mmol/L (98-107); CREATININE - SERUM 0.7 mg/dL (0.6-1.3); GLUCOSE 188 mg/dL (74-106); POTASSIUM - SERUM 4.2 mmol/L (3.5-5.1); SODIUM 141 mmol/L (136-145); UREA NITROGEN 8 mg/dL (7-18); eGFR NON AFRICAN AMERICAN > 90 mL/min (90-120)
[2017-02-04 07:16] VITALS: BP 122/43
--- NOTE | 2017-02-04 07:30 | NUR ---
ASSESSMENT DONE. DENIES NEEDS. FAMILY AT SIDE.
--- NOTE | 2017-02-04 09:14 | NUR ---
ISOLATION PRECAUTIONS CONT. FAMILY AT BS. CALL LIGHT IN REACH. WILL CONT. PLAN OF CARE.
[2017-02-04 11:04] VITALS: BP 135/53
--- NOTE | 2017-02-04 15:45 | NUR ---
TO OR PER BED
[2017-02-04 18:04] VITALS: BP 131/61
--- NOTE | 2017-02-04 18:23 | OP ---
PATIENT NAME: DESTINY BROOKS MEDICAL RECORD: [id number] :36 LOCATION:D.MS [id number] ADMISSION DATE:01/30/17 SURGEON: FEIL GOETZ, DATE OF OPERATION: 02/04/2017 PROCEDURE PERFORMED: Right foot partial amputation. 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 POSTOPERATIVE DIAGNOSES: Right foot gangrene on the fourth and fifth toes and the right fifth metatarsal distal lateral border. INDICATIONS: Mr. Brooks is an 81-year-old male that has been seen by me for the last 3 months. He has had the vascular flow issues to his foot and had this necrotic ulcers dry gangrene on for quite some time and has been to the wound care clinic as well as has been seen by podiatry. He recently had his foot revascularized by interventional radiology. Once this was done and the foot to his family did not appear to be getting better, they asked me to intercede and give my opinion. My opinion was that we should do a partial amputation of his foot due to the fact that he has not healed and try to seize on the fact that he does have some vascular flow to his foot now, so it may increase his chance of healing; however, with cavity out of that, this wound may not heal and he may need additional more proximal amputations. This was explained to them and he and his family were in agreement with the recommended treatment. SURGEON: Feli Goetz DO COMPLICATIONS: None. BLOOD LOSS: Minimal. DESCRIPTION OF PROCEDURE: The patient was taken to the operative suite. He had a spinal placed by anesthesia, which set up well and then the right foot was prepped and draped in sterile fashion. Timeout was performed. Everyone was in agreeance with correct side, site and patient and correct procedure. The procedure then commenced with the incision on the medial border of the fourth toe, extending proximally and laterally to include the area of necrosis on the lateral border of the distal fifth metatarsal. This was done circumferentially on the dorsal and plantar surface. The fourth and fifth toes were removed and the fourth metatarsal was rongeured back and the fifth metatarsal as well was rongeured back to more hard bone of the fifth metatarsal that had been exposed previously, it was quite soft. This was sent to the lab for analysis. Once this was done, the foot was irrigated. There were some bleeding surfaces at that time and the skin was then closed with 3-0 Prolene in a modified Donati stitch with vertical and horizontal mattress in between sutures with a 3-0 Prolene and 4-0 nylon. This was done and the foot was dressed with Xeroform, 4 x 4s, Webril and then Alverto wrap. Once this was done, the patient was taken to recovery in stable condition. TRANSINT:[id number] Voice Confirmation ID: [id number] DOCUMENT ID: [id number] OPERATIVE REPORT [id number] DESTINY BROOKS MICHAEL D, DO at 1823 CC: [id number] DICTATION DATE: 02/04/171736 SAP BASIS CONSULTANT: 02/04/17 180 ADM IN [facility] [address] [place] [id number]
[2017-02-04 20:00] VITALS: BP 124/60
--- NOTE | 2017-02-04 21:00 | NUR ---
PT HAD ACCIDENTAL BM IN BED. CHANGED ALL BED LINEN AND GAVE BED BATH. FOUND IV HAD COME OUT CATHETER INTACT. PT STATES HE IS NOT IN ANY PAIN AND DOES NOT WANT IV RESITED AT THIS TIME. GAVE SCHEDULED MEDS. PT STATES HE HAS INDIGESTION/CRAMPING AND REQUESTED MYLANTA OR OTHER ANTACID. RUIZ, ASSISTANT REAL ESTATE MANAGER ACQUIRED ORDER FOR MILK OF MAG. GAVE TO PT. NO OTHER NEEDS. INSTRUCTED PT TO CALL BEFORE TRYING TO GET UP AND PUT BED ALARM ON.
--- NOTE | 2017-02-04 22:20 | NUR ---
PT UP TO BEDSIDE COMMODE. PT TRYING TO GET UP WITHOUT ASSISTANCE AND DOESN'T LIKE FOR BED ALARM TO BE ON. OTHER NURSES AND MYSELF EXPLAIN TO HIM THAT IS A FALL PRECAUTION AFTER SURGERY. CHANGED PAD ON BED. PT C/O RIGHT FOOT PAIN 12/18. GAVE OXY IR 5 MG PO. ELEVATED FOOT ON PILLOW. ADDED EXTRA BLANKETS FOR WARMTH PT C/O THAT ROOM IS TOO COLD. THERMOSTAT IS ON MAX TEMP. WARM BLANKET NEEDED.
--- NOTE | 2017-02-04 23:39 | NUR ---
PT TRYING TO GET OUT OF BED WITHOUT ASSISTANCE. HELPED HIM ONTO BEDSIDE COMMODE. PT C/O PAIN IN RT FOOT. GAVE PT FLEXERIL 10 MG PO. PT BACK TO BED. APPLIED ANOTHER WARM BLANKET. WILL CONTINUE TO MONITOR.
[2017-02-05 00:18] VITALS: BP 135/60
--- NOTE | 2017-02-05 01:35 | NUR ---
PT C/O RIGHT FOOT PAIN NOT CONTROLLED. RESITED 22 GAUGE IV TO RIGHT FOREARM AND GAVE DILAUDID 0.5 MG IV. ELEVATED FOOT AND TUCKED IN UNDER MANY BLANKETS. NO OTHER NEEDS. WILL REASSESS AND CONTINUE TO MONITOR.
--- NOTE | 2017-02-05 03:06 | NUR ---
PT YELLING OUT FOR . CAME IN TO FIND PT TRYING TO GET OUT BED. ASSISTED UP TO BEDSIDE COMMODE TO VOID. PT A LITTLE CONFUSED. PT CALLED . PUT BACK INTO BED. TABLE AND CALL LIGHT IN REACH AND INSTRUCTED HIM AGAIN TO USE IT FOR ASSISTANCE. NO OTHER NEEDS. WILL CONTINUE TO MONITOR.
--- NOTE | 2017-02-05 04:00 | NUR ---
PT CONFUSED. PT TOOK OFF ALL DRESSING ON SURGICAL FOOT. PT STATED "IT WAS HURTING AND YUE WRAP WAS TOO TIGHT, SO I HAD TO TAKE IT OFF." REDRESSED RIGHT FOOT WITH 4X4'S, REPLACED COTTON SURGICAL DRESSING AND WRAPPED IN KERLIX. PT C/O FOOT PAIN 12/18. GAVE MORPHINE 2 MG IV PUSH. PLACED PT IN BED WITH FOOT ELEVATED. PT WILL NOT STAY IN BED OR KEEP FOOT ELEVATED. HAVE RESPONDED TO BED ALARM SEVERAL TIMES FINDING PT CLIMBING OUT OF BED. WHEN ASKED WHY HE IS GETTING UP, HE JUST LAUGHS AND STATES, "I JUST NEED TO GET UP! I HAVE THINGS TO DO." REITERATED WHY HE NEEDS TO STAY IN BED, TO BE SAFE AND KEEP FROM FALLING AND/OR INJURING FOOT. PT VERBALIZES UNDERSTANDNG EACH TIME BUT CONTINUES RISKY BEHAVIOR. ASKED HIM IF HE NEEDED TO TOILET, HE STATED NO. HE ASKED ABOUT BREAKFAST TIME THAT HE WAS HUNGRY. PT SITTING UP IN BED EATING SHANELL CRACKERS AND WAFERS. WILL CONTINUE TO MONITOR. BED LOW AND CALL LIGHT IN REACH. BED ALARM ON. R.
[2017-02-05 04:34] VITALS: BP 130/64
[2017-02-05 05:21] LABS: BASOPHILS 0.2 % (0-2); EOSINOPHILS 0.2 % (0-7); HEMATOCRIT 39.2 % (42.0-54.0); HEMOGLOBIN 12.8 g/dL (13.5-17.5); IMMATURE GRANULOCYTES 0.3 % (0-5); LYMPHOCYTES 14.3 % (15-50); MCHC 32.7 g/dL (31.0-37.0); MCV 88.7 fL (80.0-100.0); MONOCYTES 7.7 % (2-11); NEUTROPHILS 77.3 % (40-80); PLATELET COUNT 435 10x3/uL (130-400); RBC 4.42 10x6/uL (4.20-6.10); RDW 13.8 % (11.5-14.5); WBC 11.9 10x3/uL (4.8-10.8)
[2017-02-05 05:33] LABS: CALC OSMOLALITY 280 mosm/kg (275-300); CALCIUM 8.9 mg/dL (8.5-10.1); CARBON DIOXIDE 33.6 mmol/L (21.0-32.0); CHLORIDE - SERUM 100 mmol/L (98-107); GLUCOSE 146 mg/dL (74-106); SODIUM 140 mmol/L (136-145); UREA NITROGEN 10 mg/dL (7-18)
[2017-02-05 05:34] LABS: CREATININE - SERUM 0.9 mg/dL (0.6-1.3); POTASSIUM - SERUM 3.5 mmol/L (3.5-5.1); eGFR NON AFRICAN AMERICAN 86 mL/min (90-120)
[2017-02-05 08:43] VITALS: BP 155/68
[2017-02-05 11:51] VITALS: BP 150/72
[2017-02-05 16:49] VITALS: BP 149/70
[2017-02-05 20:00] VITALS: BP 100/51
--- NOTE | 2017-02-05 22:16 | NUR ---
REC'D LYING IN BED RESTING. ALERT AND ORIENTED X4. DENIED PAIN AT THIS TIME. DENIED NEEDS AT THIS TIME. INSTRUCTED TO CALL IF NEEDED ANYTHING, VERBALIZED UNDERSTANDING. NO DISTRESS NOTED. WILL ADMIN MEDS PRESCRIBED. BED LOW, LOCKED, CALL LIGHT IN REACH, ALARM ON.
[2017-02-06] VITALS: BP 121/55
[2017-02-06 04:00] VITALS: BP 112/55
[2017-02-06 05:35] LABS: BASOPHILS 0.2 % (0-2); EOSINOPHILS 1.5 % (0-7); HEMATOCRIT 37.1 % (42.0-54.0); IMMATURE GRANULOCYTES 0.2 % (0-5); LYMPHOCYTES 30.5 % (15-50); MCH 28.7 pg (26.0-34.0); MCHC 32.3 g/dL (31.0-37.0); MCV 88.8 fL (80.0-100.0); MEAN PLATELET VOLUME 9.9 fL (7.4-10.4); MONOCYTES 12.5 % (2-11); NEUTROPHILS 55.1 % (40-80); PLATELET COUNT 392 10x3/uL (130-400); RBC 4.18 10x6/uL (4.20-6.10); RDW 13.7 % (11.5-14.5); WBC 9.4 10x3/uL (4.8-10.8)
[2017-02-06 06:00] LABS: CALC OSMOLALITY 280 mosm/kg (275-300); CALCIUM 8.4 mg/dL (8.5-10.1); CARBON DIOXIDE 29.6 mmol/L (21.0-32.0); CHLORIDE - SERUM 102 mmol/L (98-107); CREATININE - SERUM 0.8 mg/dL (0.6-1.3); POTASSIUM - SERUM 4.2 mmol/L (3.5-5.1); SODIUM 138 mmol/L (136-145); UREA NITROGEN 10 mg/dL (7-18); eGFR NON AFRICAN AMERICAN > 90 mL/min (90-120)
[2017-02-06 06:04] LABS: GLUCOSE 209 mg/dL (74-106)
[2017-02-06 08:12] VITALS: BP 136/68
[2017-02-06 12:34] VITALS: BP 105/53
[2017-02-06] MEDS ORDERED: DETROL2 MG PO (13:32)
[2017-02-06] MEDS ORDERED: HYDROCODON-ACE1 EAC7 PO (13:34)
[2017-02-06] MEDS ORDERED: HYDROCODONE-APA1 TAB PO (13:34)
--- NOTE | 2017-02-06 14:05 | NUR ---
Patient Name: DESTINY BROOKS Admission Status: ER Accout number: [id number] Admission Date: 01-30-2017 : 1935 Admission Diagnosis:PAIN IN RIGHT FOOT Attending: FELI CHOWDHURY Current LOS: 7 Anticipated DC Date: 02-06-2017 Planned Disposition: Home with Home Health Primary Insurance: [employer] CHOICE PPO [facility] Discharge Planning Comments: CM MET WITH PATIENT REGARDING D/C NEEDS AND PLANS. PATIENT IS DISCHARGING HOME TODAY AND WILL DRIVE HIM. PATIENT STATED HE HAS 4 STEPS TO ENTER HOME AND NO STAIRS INSIDE. PATIENT IS INDEPENDENT WITH HIS CARE AND HAS A WALKER, CANE, BS COMMODE, AND GLUCOMETER AT HOME. PATIENT STATED DR. DALLAS IS HIS PCP AND USES [facility] IN [facility]. PATIENT IS CURRENT WITH [facility] AND THEY HAVE BEEN NOTIFIED. PCP DR. BURT HINSON IN [facility]- [phone] ROGELIO () [phone] Engineering Designer: Sonya Cabrales Is the patient Alert and Oriented? Yes 0 * How many steps to enter\exit or inside your home? 0 0 * PCP DR. DALLAS 0 * Pharmacy [facility] IN [facility] 0 * Preadmission Environment Home with Family 0 * ADLs Independent 0 * Equipment Bedside Commode Cane Glucometer Walker 0 * List name and contact numbers for known caregivers / representatives who currently or will assist patient after discharge: ROGELIO [phone] 0 * Community resources currently utilized Home Health 0 * Please name any agencies selected above. [facility] 0 * Additional services required to return to the preadmission environment? Yes 0 * Can the patient safely return to the preadmission environment? Yes 0 * Has this patient been hospitalized within the prior 30 days at any hospital? No 0 Grand Total: 0
[2017-02-06 17:04] VITALS: BP 120/48
--- NOTE | 2017-02-06 17:46 | NUR ---
1700 DR GOETZ STOPPED IN AND SHOWED PT AND SP HOW TO CHANGE DRESSING AND GAVE SUPPLIES NEEDED. PT IS BEING D/C HOME
== END 2017-02-06 17:47 | disposition home health service (06) | DRG 270 ==
LOC: D.ER 16:53 → D.M2 23:41 → D.MS 23:41
PROVIDERS: Emergency Medicine; General Practice; Internal Medicine Gastroenterology; Physician Assistant; ADMIT Family Medicine
PROC: 04CP3ZZ Extirpation of Matter from Right Anterior Tibial Artery, Percutaneous Approach (ICD-10-PCS; 2017-02-01)
PROC: B41F1ZZ Fluoroscopy of Right Lower Extremity Arteries using Low Osmolar Contrast (ICD-10-PCS; principal; 2017-02-01 14:00)
PROC: 0Y6M0ZD Detachment at Right Foot, Partial 4th Ray, Open Approach (ICD-10-PCS; 2017-02-04)
PROC: 0Y6M0ZF Detachment at Right Foot, Partial 5th Ray, Open Approach (ICD-10-PCS; 2017-02-04)
DX: E11.52 Type 2 diabetes mellitus with diabetic peripheral angiopathy with gangrene (principal); E43 Unspecified severe protein-calorie malnutrition; I96 Gangrene, not elsewhere classified; L03.115 Cellulitis of right lower limb; L02.611 Cutaneous abscess of right foot; Z68.1 Body mass index [BMI] 19.9 or less, adult; A04.72 Enterocolitis due to Clostridium difficile, not specified as recurrent; L97.511 Non-pressure chronic ulcer of other part of right foot limited to breakdown of skin; I10 Essential (primary) hypertension; J45.909 Unspecified asthma, uncomplicated; E11.65 Type 2 diabetes mellitus with hyperglycemia; I70.203 Unspecified atherosclerosis of native arteries of extremities, bilateral legs; S92.911A Unspecified fracture of right toe(s), initial encounter for closed fracture

== ENCOUNTER 2017-08-07 13:47 | Outpatient (CLI) | payer MEDICARE ==
[~2017-08-07] VITALS: Ht 177.8 cm; Wt 56.4 kg
[~2017-08-07 13:47] MED LIST changes: +EFFEXOR75 MG PO; +FLAGYL500 MG PO; +HYDROCODON-ACE1 EAC7 PO; +NEURONTIN 300300 MG PO; +OMEPRAZOLE20 M1 PO; +PROBIOTIC1 EAC1 PO
[2017-08-07 14:04] VITALS: Ht 177.8 cm; Wt 56.4 kg
== END 2017-08-07 17:20 | disposition home or self-care (01) ==
LOC: D.OPS 13:47
DX: K52.9 Noninfective gastroenteritis and colitis, unspecified (principal)

== ENCOUNTER 2017-08-23 21:25 | Inpatient (IN) | payer MEDICARE ==
[~2017-08-23] VITALS: Ht 177.8 cm; Wt 56.0 kg
--- NOTE | ~2017-08-23 | EC ---
PATIENT:DESTINY BROOKS DATE OF SERVICE: 08/23/17 SEX: M MEDICAL RECORD: [id number] DATE OF : 36 LOCATION:[place] [address] AGE OF PATIENT: 82 ADMISSION DATE: 08/23/17 REFERRING PHYSICIAN: INTERPRETING PHYSICIAN: HEBER KOVACS MD ECHOCARDIOGRAM REPORT ECHO CHARGES 4 ECHO COMPLETE Date: 08/24 CLINICAL DIAGNOSIS: MURMUR ECHOCARDIOGRAPHIC MEASUREMENTS (adult normal given) AC root (d.<3.7cm) 3.4 cm LV Septum d (<1.2 cm> 1.2 cm Valve Excursion 0.7 cm LV Septum (systole) 1.6 cm Left Atria (s.<4.0cm> 3.3 cm LVPW d(<1.2cm) 1.3 cm RV (d.<2.3cm) 1.8 cm LVPW (sytole) 1.6 cm LV diastole(<5.6CM) 5.6 cm MV E-F(>70mm/sec) cm LV systole 3.8 cm LVOT Diameter 1.9 cm MV exc.(>10mm) cm Est.ejection fraction (50-75%) % DOPPLER: LVIT cm/sec A 113 cm/sec E 94.0 cm/sec LA cm/sec RVSP 46.2 mmHg LVOT 107 cm/sec AOP1/2T m/s Asc. Ao 364 cm/sec RVOT 77.0 cm/sec RA cm/sec PA 181 cm/sec AV Gradient Peak 53.0 mmHg AV Mean 28.3 mmHg AV Area 0.8 cm MV Gradient Peak 8.0 mmHg MV Mean 2.8 mmHg MV Area cm COMMENTS: It Audit Manager: Suzanne BARROSOE Oracle Database Administrator: 4 Dr. Kovacs TAPE# PACS Pericardial Effusion N DATE OF SERVICE: PROCEDURE: Transthoracic echocardiogram. FINDINGS: 1. Left ventricle was difficult to visualize, but the overall ejection fraction is preserved. There is mild to moderate left ventricular hypertrophy, in flow characteristics consistent with diastolic dysfunction. The ejection fraction is 60% to 65%. 2. The mitral valve is shown to have vobd-ef-mqhzftpd mitral regurgitation. ECHOCARDIOGRAM REPORT [id number] DESTINY BROOKS 3. The left atrium is normal size. 4. The aortic valve is thickened. There is decreased leaflet mobility. Peak pressures systolically across are 53 with a mean of 28, a calculated valve area of 0.8. It looks as if they were 1-1.1 range. 5. The right ventricle is normal size, normal function. 6. The right atrium is mildly dilated. 7. The pulmonic valve is normal. 8. The pericardium is normal. CONCLUSIONS: The patient has evidence of hypertensive heart disease and moderate to severe aortic stenosis. TRANSINT:[id number] Voice Confirmation ID: [id number] DOCUMENT ID: [id number] HEBER KOVACS MD at 1500 CC: [id number] DICTATION DATE: 08/25/17 0809 CELL INSPECTOR: 08/25/17 1410 DIS IN 08/26/17 [facility] [address] [place] [address]
[2017-08-23 23:12] LABS: BASOPHILS 0.7 % (0-2); EOSINOPHILS 6.2 % (0-7); HEMATOCRIT 30.2 % (42.0-54.0); HEMOGLOBIN 10.1 g/dL (13.5-17.5); IMMATURE GRANULOCYTES 0.4 % (0-5); LYMPHOCYTES 33.8 % (15-50); MCHC 33.4 g/dL (31.0-37.0); MCV 89.6 fL (80.0-100.0); MONOCYTES 7.8 % (2-11); NEUTROPHILS 51.1 % (40-80); PLATELET COUNT 321 10x3/uL (130-400); RBC 3.37 10x6/uL (4.20-6.10); RDW 21.6 % (11.5-14.5); WBC 7.2 10x3/uL (4.8-10.8)
[2017-08-23 23:17] LABS: ALBUMIN 2.2 g/dL (3.4-5.0); ALKALINE PHOSPHATASE 667 U/L (46-116); ALT (SGPT) 165 U/L (10-68); AMYLASE - SERUM 17 U/L (25-115); CALC OSMOLALITY 291 mosm/kg (275-300); CALCIUM 8.7 mg/dL (8.5-10.1); CARBON DIOXIDE 25.3 mmol/L (21.0-32.0); CHLORIDE - SERUM 106 mmol/L (98-107); CREATININE - SERUM 0.9 mg/dL (0.6-1.3); POTASSIUM - SERUM 4.4 mmol/L (3.5-5.1); SODIUM 141 mmol/L (136-145); UREA NITROGEN 9 mg/dL (7-18); eGFR NON AFRICAN AMERICAN 86 mL/min (90-120)
[2017-08-23 23:18] LABS: GLUCOSE 308 mg/dL (74-106); LIPASE 23 U/L (73-393)
[2017-08-24] VITALS (14 sets, daily range): BP systolic 127–180; BP diastolic 43–77; Ht 177.8 cm; Wt 56.0 kg
[2017-08-24 00:06] LABS: APPEARANCE CLEAR (CLEAR); BILIRUBIN 2+ (NEGATIVE); COLOR BROWN (YELLOW); GLUCOSE 1000 mg/dL (NEGATIVE); KETONE NEGATIVE (NEGATIVE); NITRITE NEGATIVE (NEGATIVE); PROTEIN NEGATIVE (NEGATIVE); UROBILINOGEN NORMAL (NORMAL)
[2017-08-24 00:07] LABS: BACTERIA FEW /hpf (NONE SEEN); EPITHELIAL CELLS NSEEN /hpf (0-5); RED CELLS - URINE NONE SEEN /hpf (0-5); WHITE CELLS - URINE NSEEN /hpf (0-5)
[2017-08-24] MEDS ORDERED: FLOVENT HFA 22012 GM INH (01:46)
[2017-08-24] MEDS ORDERED: NOVOLOG100 U/M1 SQ (01:52)
[2017-08-24] MEDS ORDERED: OMEPRAZOLE20 M1 PO (01:54)
[2017-08-24] MEDS ORDERED: BENTYL10 MG PO (01:56)
[2017-08-24 06:11] LABS: BASOPHILS 0.6 % (0-2); EOSINOPHILS 5.1 % (0-7); HEMATOCRIT 30.6 % (42.0-54.0); HEMOGLOBIN 10.4 g/dL (13.5-17.5); IMMATURE GRANULOCYTES 0.4 % (0-5); LYMPHOCYTES 24.3 % (15-50); MCH 30.2 pg (26.0-34.0); MEAN PLATELET VOLUME 11.2 fL (7.4-10.4); MONOCYTES 10.3 % (2-11); NEUTROPHILS 59.3 % (40-80); PLATELET COUNT 325 10x3/uL (130-400); RBC 3.44 10x6/uL (4.20-6.10); RDW 22.2 % (11.5-14.5); WBC 8.4 10x3/uL (4.8-10.8)
[2017-08-24 06:37] LABS: ALBUMIN 2.3 g/dL (3.4-5.0); ALKALINE PHOSPHATASE 681 U/L (46-116); ALT (SGPT) 171 U/L (10-68); CALCIUM 8.8 mg/dL (8.5-10.1); CARBON DIOXIDE 27.6 mmol/L (21.0-32.0); CHLORIDE - SERUM 106 mmol/L (98-107); CREATININE - SERUM 0.8 mg/dL (0.6-1.3); PROTEIN - SERUM 6.3 g/dL (6.4-8.2); SODIUM 144 mmol/L (136-145); UREA NITROGEN 7 mg/dL (7-18); eGFR NON AFRICAN AMERICAN > 90 mL/min (90-120)
[2017-08-24 06:42] LABS: CALC OSMOLALITY 283 mosm/kg (275-300); GLUCOSE 85 mg/dL (74-106); POTASSIUM - SERUM 3.6 mmol/L (3.5-5.1)
[2017-08-24 07:46] LABS: INR 1.09 (0.85-1.17); PROTIME 13.7 SECONDS (11.6-15.0)
[2017-08-25] VITALS (25 sets, daily range): BP systolic 123–173; BP diastolic 42–104
[2017-08-25 06:09] LABS: BASOPHILS 0.9 % (0-2); EOSINOPHILS 6.9 % (0-7); HEMATOCRIT 30.7 % (42.0-54.0); HEMOGLOBIN 10.2 g/dL (13.5-17.5); IMMATURE GRANULOCYTES 0.4 % (0-5); LYMPHOCYTES 30.5 % (15-50); MCH 29.4 pg (26.0-34.0); MCHC 33.2 g/dL (31.0-37.0); MCV 88.5 fL (80.0-100.0); MEAN PLATELET VOLUME 11.7 fL (7.4-10.4); MONOCYTES 7.7 % (2-11); NEUTROPHILS 53.6 % (40-80); PLATELET COUNT 293 10x3/uL (130-400); RBC 3.47 10x6/uL (4.20-6.10); RDW 21.9 % (11.5-14.5); WBC 6.9 10x3/uL (4.8-10.8)
[2017-08-25 06:23] LABS: ALBUMIN 1.9 g/dL (3.4-5.0); ALKALINE PHOSPHATASE 563 U/L (46-116); BILIRUBIN - TOTAL 11.91 mg/dL (0.2-1.3); CALC OSMOLALITY 277 mosm/kg (275-300); CALCIUM 8.3 mg/dL (8.5-10.1); CARBON DIOXIDE 28.5 mmol/L (21.0-32.0); CHLORIDE - SERUM 104 mmol/L (98-107); CREATININE - SERUM 0.6 mg/dL (0.6-1.3); GLUCOSE 124 mg/dL (74-106); POTASSIUM - SERUM 3.6 mmol/L (3.5-5.1); PROTEIN - SERUM 5.3 g/dL (6.4-8.2); SODIUM 140 mmol/L (136-145); UREA NITROGEN 7 mg/dL (7-18); eGFR NON AFRICAN AMERICAN > 90 mL/min (90-120)
[2017-08-25 06:27] LABS: ALT (SGPT) 124 U/L (10-68)
[2017-08-26] VITALS (8 sets, daily range): BP systolic 140–168; BP diastolic 46–54
[2017-08-26 05:54] LABS: BASOPHILS 0.8 % (0-2); HEMATOCRIT 30.3 % (42.0-54.0); HEMOGLOBIN 10.1 g/dL (13.5-17.5); IMMATURE GRANULOCYTES 0.1 % (0-5); LYMPHOCYTES 35.6 % (15-50); MCH 29.2 pg (26.0-34.0); MCHC 33.3 g/dL (31.0-37.0); MCV 87.6 fL (80.0-100.0); MEAN PLATELET VOLUME 11.2 fL (7.4-10.4); MONOCYTES 7.4 % (2-11); NEUTROPHILS 51.1 % (40-80); PLATELET COUNT 280 10x3/uL (130-400); RBC 3.46 10x6/uL (4.20-6.10); RDW 21.4 % (11.5-14.5); WBC 7.8 10x3/uL (4.8-10.8)
[2017-08-26 06:33] LABS: ALBUMIN 1.8 g/dL (3.4-5.0); ALKALINE PHOSPHATASE 564 U/L (46-116); ALT (SGPT) 113 U/L (10-68); BILIRUBIN - TOTAL 7.76 mg/dL (0.2-1.3); CALC OSMOLALITY 278 mosm/kg (275-300); CALCIUM 8.1 mg/dL (8.5-10.1); CHLORIDE - SERUM 104 mmol/L (98-107); CREATININE - SERUM 0.7 mg/dL (0.6-1.3); GLUCOSE 126 mg/dL (74-106); POTASSIUM - SERUM 3.5 mmol/L (3.5-5.1); PROTEIN - SERUM 5.1 g/dL (6.4-8.2); SODIUM 140 mmol/L (136-145); UREA NITROGEN 6 mg/dL (7-18); eGFR NON AFRICAN AMERICAN > 90 mL/min (90-120)
[2017-08-26] MEDS ORDERED: BACTRIM DS TABL1 TAB PO (07:59)
== END 2017-08-26 11:51 | disposition home or self-care (01) | DRG 435 ==
LOC: D.ER 21:25 → D.EDHOLD 23:57 → D.CVICU 23:57
PROVIDERS: Emergency Medicine; Family Medicine; Internal Medicine Gastroenterology
PROC: 0F798DZ Dilation of Common Bile Duct with Intraluminal Device, Via Natural or Artificial Opening Endoscopic (ICD-10-PCS; principal; 2017-08-25)
DX: C25.9 Malignant neoplasm of pancreas, unspecified (principal); E43 Unspecified severe protein-calorie malnutrition; K83.1 Obstruction of bile duct; R17 Unspecified jaundice; L03.119 Cellulitis of unspecified part of limb; Z68.1 Body mass index [BMI] 19.9 or less, adult; R74.8 Abnormal levels of other serum enzymes; K86.89 Other specified diseases of pancreas; I35.0 Nonrheumatic aortic (valve) stenosis; Z86.73 Personal history of transient ischemic attack (TIA), and cerebral infarction without residual deficits; E11.9 Type 2 diabetes mellitus without complications; R01.1 Cardiac murmur, unspecified; K21.9 Gastro-esophageal reflux disease without esophagitis; I10 Essential (primary) hypertension

== ENCOUNTER 2017-09-05 08:05 | Inpatient (IN) | payer MEDICARE ==
[2017-09-05] VITALS (8 sets, daily range): BP systolic 131–154; BP diastolic 52–58; BMI 18.3; BMI 18.5
[~2017-09-05] VITALS: Ht 175.3 cm; Wt 62.9 kg
--- NOTE | ~2017-09-05 | EC ---
PATIENT:DESTINY BROOKS DATE OF SERVICE: 09/05/17 SEX: M MEDICAL RECORD: [id number] DATE OF : 36 LOCATION:[facility] D230 AGE OF PATIENT: 82 ADMISSION DATE: 09/05/17 REFERRING PHYSICIAN: INTERPRETING PHYSICIAN: HEBER KOVACS MD ECHOCARDIOGRAM REPORT ECHO CHARGES 4 ECHO COMPLETE Date: 09/15 CLINICAL DIAGNOSIS: NC ECHOCARDIOGRAPHIC MEASUREMENTS (adult normal given) AC root (d.<3.7cm) 3.0 cm LV Septum d (<1.2 cm> 1.3 cm Valve Excursion 1.0 cm LV Septum (systole) 1.5 cm Left Atria (s.<4.0cm> 5.0 cm LVPW d(<1.2cm) 1.3 cm RV (d.<2.3cm) 3.8 cm LVPW (sytole) 1.5 cm LV diastole(<5.6CM) 4.2 cm MV E-F(>70mm/sec) cm LV systole 3.4 cm LVOT Diameter 1.0 cm MV exc.(>10mm) 1.4 cm Est.ejection fraction (50-75%) % DOPPLER: LVIT cm/sec A cm/sec E cm/sec LA cm/sec RVSP 39 mmHg LVOT 159 cm/sec AOP1/2T m/s Asc. Ao 273 cm/sec RVOT cm/sec RA 39 cm/sec PA cm/sec AV Gradient Peak 29.88mmHg AV Mean 18.16mmHg AV Area 0.4 cm MV Gradient Peak 7.36 mmHg MV Mean 2.54 mmHg MV Area cm COMMENTS: Clothing Busheler: 2 CHEY GANN Account Contact Associate: 4 Dr. Kovacs TAPE# PACS Pericardial Effusion Y DATE OF SERVICE: PROCEDURE: Transthoracic echocardiogram. FINDINGS: 1. Left ventricle shows moderate concentric left ventricular hypertrophy. Inflow characteristics are not calculable because of atrial fibrillation. Overall, ejection fraction is 45% to 50%. There is mild anterior apical hypokinesis. 2. Left atrium is moderate to severely dilated. ECHOCARDIOGRAM REPORT [id number] DESTINY BROOKS 3. Aortic valve has a peak pressure gradient that may be under represented at 29-30 mmHg, mean gradient of 18, valve area by planimetry is approximately 1.1. 4. The mitral valve has mitral annular calcification, thickening and moderate to severe mitral regurgitation. 5. Tricuspid valve has mild tricuspid regurgitation. RVSP at 39-45 mmHg. There is a trace pericardial effusion without tamponade physiology. CONCLUSIONS: The patient has evidence of hypertensive heart disease, cugnkjfv-uv-vzjsky aortic stenosis, ehkmezhw-sk-qsphbw mitral regurgitation with a new onset of atrial fibrillation and dilatation of the left atrial size. TRANSINT:[id number] Voice Confirmation ID: [id number] DOCUMENT ID: [id number] HEBER KOVACS MD at 1120 CC: [id number] DICTATION DATE: 09/15/17 1517 MECHANIC FIELD SERVICE: 09/15/17 1536 DIS IN 09/19/17 [place] [id number] [place] [address]
--- NOTE | ~2017-09-05 | OP ---
PATIENT NAME: DESTINY BROOKS MEDICAL RECORD: [id number] :37 LOCATION:[id number] ADMISSION DATE:09/05/17 SURGEON: TERRENCE BARKLEY MD DATE OF OPERATION: 09/05/2017 PREOPERATIVE DIAGNOSES: 1. Pancreatic head cancer. 2. Aortic stenosis. 3. Hypertension. 4. Asthma. 5. GERD. 6. Peripheral vascular disease. 7. Depression/anxiety. POSTOPERATIVE DIAGNOSES: 1. Pancreatic head cancer. 2. Aortic stenosis. 3. Hypertension. 4. Asthma. 5. GERD. 6. Peripheral vascular disease. 7. Depression/anxiety. PROCEDURE: Whipple procedure. SURGEON: Terrence Barkley MD PLUG WIRER: Camila Campa APRN REPORT OF PROCEDURE: The patient's abdomen was prepped and draped in sterile fashion. An upper midline incision was performed. As I entered the peritoneum, I felt around against the abdominal wall to assure there was no sign of any carcinomatosis. There was none felt, so we continued our dissection and opened up the fascia in the midline. We were able to look at the abdominal cavity and saw there was no sign of any metastatic disease visible. The liver had some cholesterol deposits, but otherwise appeared to be normal. The patient's gallbladder was distended. We performed a dome down technique and was able to remove the gallbladder. The cystic artery and cystic duct were found and these were clipped proximally and distally and ligated in standard fashion. We then kocherized the duodenum and was able to get posterior to the pancreatic head. We then entered the lesser sac using an EnSeal and was able to get over the distal aspect of the pancreas and continued our dissection medially. We were able to eventually get to the pancreas and can see the vessels did not appear to be grossly incorporated in this mass. We eventually dissected out the patient's common bile duct. Once this was dissected free, it was transected and left open. We dissected the tissue off the patient's portal vein up to the superior aspect of the neck of the pancreas. We then freed up an area on the stomach to perform an antrectomy. The antrum of the stomach was transected using a 75 green load KYLE stapler. We took down the short gastrics and all attached vessels to this portion of the stomach using an EnSeal or clamp and tie technique. We then dissected the neck of the pancreas off the portal vein and transected the pancreas using electrocautery. We then began our dissection of the pancreas off the portal vein and eventually we were able to get posterior to the portal vein and release all the attachments including multiple branch vessels. These were treated either with a clamp and tie technique or with the OPERATIVE REPORT [id number] DESTINY BROOKS EnSeal device. Once we were able to get this portion of the pancreas freed up, we found the patient's gastroduodenal artery and this was ligated with 2-0 silks and clips. At this point, we had the head of the pancreas completely freed up from the surrounding tissues. We then found the ligament of Treitz and transected the small bowel just distal to this using a 75 blue load KYLE stapler. The mesentery was taken down with an EnSeal until we were able to eviscerate this bowel back through the ligament of Treitz and at this point, we were able to completely remove the mass. The common bile duct and the pancreatic ducts were marked and sent for frozen specimen. Frozen section showed there was no sign of any malignant disease present at these sites. We grasped the bowel and pulled it up 40 cm and then transected the small bowel at this point with a 55 blue load KYLE stapler. The distal aspect of the bowel was brought up about 20 cm and a [id number] jejunojejunostomy was performed using a 75 blue load KYLE stapler. The enterotomies were closed off with a 30 blue load TA stapler and the suture lines were oversewn with Lemberted 3-0 silks. The small bowel was then brought up to the stomach in an antecolic fashion and an end-to-side gastrojejunostomy was performed using a 75 blue load KYLE stapler. The enterotomies were closed off with a 30 blue load TA stapler and the anastomotic lines were oversewn with Lemberted 3-0 silks. The Silvia limb was brought up in a retrocolic fashion just to the right side of the patient's middle colic vessel in a candy cane fashion. It was laid down by the pancreatic and biliary tubes. The common bile duct was anastomosed first. The hepatico J was performed by making a small opening with electrocautery in the jejunum and suturing this to the common bile duct using multiple interrupted 4-0 PDS'. The pancreas was then sutured to the small bowel, posteriorly using vertical mattress 3-0 silks. An opening was then made in the jejunum and an end-to-side anastomosis was made of the pancreatic duct to the mucosa of the small bowel using interrupted 4-0 PDS'. Once this was complete, then we oversewed the small bowel over the pancreas using horizontal mattress 3-0 silks. We then irrigated out the abdomen thoroughly with normal saline. There was noted to be some continued oozing from the patient's liver bed. This was treated with electrocautery and pressure, but continued to ooze. There did not appear to be an open bleeding vessel. I went ahead and just treated the area with Albert, which appeared to discontinue any bleeding. We saw no evidence of any bleeding anywhere else in the body. The wound was irrigated out one last time. I then placed 19-Divehi Lobo drains through the bilateral upper quadrants. The left-sided Lobo drain laid over top of all the anastomoses and the right-sided Lobo drain was placed posterior to the pancreatic J and the hepatico J. These were sutured into place with 2-0 nylons. The midline fascia was closed with running #1 loop PDS' times 2 and the skin was closed with wan. COMPLICATIONS: None. CONDITION: Stable. ANESTHESIA: General endotracheal and epidural. BLOOD LOSS: 500 mL. TRANSINT:[id number] Voice Confirmation ID: [id number] DOCUMENT ID: [id number] OPERATIVE REPORT [id number] DESTINY BROOKS CHRISTIAN MD at 0950 CC: HEBER DALLAS DO and KB LUBIN DO [id number] DICTATION DATE: 09/05/17 1457 DIRECTOR FURNITURE: 09/05/17 1637 ADM IN [facility] [address] [place] [address]
[~2017-09-05 08:05] MED LIST changes: +BACTRIM DS TABL1 TAB PO; +BENTYL10 MG PO; +FLOVENT HFA 22012 GM INH; +NOVOLOG100 U/M1 SQ
[2017-09-05] MEDS ORDERED: ZYRTEC10 MG PO (08:47)
[2017-09-05] MEDS ORDERED: NOVOLOG100 U/M1 SC (08:49)
[2017-09-05] MEDS ORDERED: TRESIBA FL100 UNIT/1 PO (08:53)
[2017-09-05 09:21] LABS: BASOPHILS 0.6 % (0-2); EOSINOPHILS 6.7 % (0-7); HEMATOCRIT 27.7 % (42.0-54.0); HEMOGLOBIN 9.1 g/dL (13.5-17.5); IMMATURE GRANULOCYTES 0.6 % (0-5); LYMPHOCYTES 36.7 % (15-50); MCH 31.5 pg (26.0-34.0); MCHC 32.9 g/dL (31.0-37.0); MCV 95.8 fL (80.0-100.0); MEAN PLATELET VOLUME 10.6 fL (7.4-10.4); MONOCYTES 8.9 % (2-11); NEUTROPHILS 46.5 % (40-80); PLATELET COUNT 317 10x3/uL (130-400); RBC 2.89 10x6/uL (4.20-6.10); RDW 16.5 % (11.5-14.5); WBC 6.3 10x3/uL (4.8-10.8)
[2017-09-05 09:37] LABS: APTT 31.4 SECONDS (22.8-39.4); PROTIME 12.8 SECONDS (11.6-15.0)
[2017-09-05 09:41] LABS: CALC OSMOLALITY 284 mosm/kg (275-300); CALCIUM 8.4 mg/dL (8.5-10.1); CARBON DIOXIDE 27.5 mmol/L (21.0-32.0); CHLORIDE - SERUM 108 mmol/L (98-107); CREATININE - SERUM 0.8 mg/dL (0.6-1.3); GLUCOSE 126 mg/dL (74-106); POTASSIUM - SERUM 3.9 mmol/L (3.5-5.1); SODIUM 143 mmol/L (136-145); UREA NITROGEN 8 mg/dL (7-18); eGFR NON AFRICAN AMERICAN > 90 mL/min (90-120)
[2017-09-05 14:04] LABS: BASOPHILS 0.2 % (0-2); EOSINOPHILS 3.8 % (0-7); HEMATOCRIT 24.6 % (42.0-54.0); HEMOGLOBIN 8.1 g/dL (13.5-17.5); IMMATURE GRANULOCYTES 0.5 % (0-5); LYMPHOCYTES 26.7 % (15-50); MCH 31.4 pg (26.0-34.0); MCHC 32.9 g/dL (31.0-37.0); MCV 95.3 fL (80.0-100.0); MONOCYTES 4.8 % (2-11); PLATELET COUNT 394 10x3/uL (130-400); RBC 2.58 10x6/uL (4.20-6.10); RDW 16.6 % (11.5-14.5); WBC 12.8 10x3/uL (4.8-10.8)
[2017-09-06] VITALS (23 sets, daily range): BP systolic 113–181; BP diastolic 32–85; BMI 17.5
[2017-09-06 04:50] LABS: BASOPHILS 0.1 % (0-2); EOSINOPHILS 0 % (0-7); IMMATURE GRANULOCYTES 0.3 % (0-5); LYMPHOCYTES 11.3 % (15-50); MCH 30.6 pg (26.0-34.0); MCHC 33.7 g/dL (31.0-37.0); MEAN PLATELET VOLUME 10.9 fL (7.4-10.4); MONOCYTES 5.2 % (2-11); NEUTROPHILS 83.1 % (40-80); PLATELET COUNT 357 10x3/uL (130-400); RDW 19.8 % (11.5-14.5); WBC 14.3 10x3/uL (4.8-10.8)
[2017-09-06 04:55] LABS: HEMATOCRIT 33.5 % (42.0-54.0); HEMOGLOBIN 11.3 g/dL (13.5-17.5); MCV 90.8 fL (80.0-100.0); RBC 3.69 10x6/uL (4.20-6.10)
[2017-09-06 05:10] LABS: ALBUMIN 1.9 g/dL (3.4-5.0); ALKALINE PHOSPHATASE 558 U/L (46-116); ALT (SGPT) 175 U/L (10-68); CALCIUM 7.7 mg/dL (8.5-10.1); CARBON DIOXIDE 22.5 mmol/L (21.0-32.0); CHLORIDE - SERUM 109 mmol/L (98-107); MAGNESIUM - SERUM 1.6 mg/dL (1.8-2.4); PHOSPHOROUS 3.6 mg/dL (2.5-4.9); POTASSIUM - SERUM 3.8 mmol/L (3.5-5.1); PROTEIN - SERUM 5.6 g/dL (6.4-8.2); SODIUM 137 mmol/L (136-145); eGFR NON AFRICAN AMERICAN 76 mL/min (90-120)
[2017-09-06 05:14] LABS: CALC OSMOLALITY 281 mosm/kg (275-300); GLUCOSE 252 mg/dL (74-106); UREA NITROGEN 11 mg/dL (7-18)
[2017-09-07] VITALS (32 sets, daily range): BP systolic 136–176; BP diastolic 39–85
[2017-09-07 05:51] LABS: BASOPHILS 0.3 % (0-2); EOSINOPHILS 0.3 % (0-7); HEMATOCRIT 28.8 % (42.0-54.0); HEMOGLOBIN 9.5 g/dL (13.5-17.5); IMMATURE GRANULOCYTES 0.3 % (0-5); LYMPHOCYTES 18.6 % (15-50); MCH 30.4 pg (26.0-34.0); MEAN PLATELET VOLUME 10.5 fL (7.4-10.4); MONOCYTES 8.3 % (2-11); NEUTROPHILS 72.2 % (40-80); PLATELET COUNT 319 10x3/uL (130-400); RBC 3.13 10x6/uL (4.20-6.10); RDW 18.7 % (11.5-14.5); WBC 11.6 10x3/uL (4.8-10.8)
[2017-09-07 06:25] LABS: ALBUMIN 1.6 g/dL (3.4-5.0); ALKALINE PHOSPHATASE 358 U/L (46-116); BILIRUBIN - TOTAL 2.12 mg/dL (0.2-1.3); CALCIUM 7.8 mg/dL (8.5-10.1); CARBON DIOXIDE 25.6 mmol/L (21.0-32.0); CHLORIDE - SERUM 111 mmol/L (98-107); MAGNESIUM - SERUM 1.8 mg/dL (1.8-2.4); POTASSIUM - SERUM 3.3 mmol/L (3.5-5.1); SODIUM 144 mmol/L (136-145); UREA NITROGEN 12 mg/dL (7-18)
[2017-09-07 06:26] LABS: ALT (SGPT) 102 U/L (10-68); CALC OSMOLALITY 291 mosm/kg (275-300); CREATININE - SERUM 0.7 mg/dL (0.6-1.3); GLUCOSE 186 mg/dL (74-106); PHOSPHOROUS 1.6 mg/dL (2.5-4.9); eGFR NON AFRICAN AMERICAN > 90 mL/min (90-120)
[2017-09-08 03:00] VITALS: BP 151/55
[2017-09-08 06:11] LABS: BASOPHILS 0.2 % (0-2); EOSINOPHILS 1.7 % (0-7); HEMATOCRIT 27.7 % (42.0-54.0); HEMOGLOBIN 9.2 g/dL (13.5-17.5); IMMATURE GRANULOCYTES 0.4 % (0-5); LYMPHOCYTES 21.6 % (15-50); MCH 30.6 pg (26.0-34.0); MCHC 33.2 g/dL (31.0-37.0); MEAN PLATELET VOLUME 10.8 fL (7.4-10.4); MONOCYTES 6.4 % (2-11); NEUTROPHILS 69.7 % (40-80); PLATELET COUNT 326 10x3/uL (130-400); RBC 3.01 10x6/uL (4.20-6.10); RDW 17.1 % (11.5-14.5); WBC 10.3 10x3/uL (4.8-10.8)
[2017-09-08 06:30] LABS: ALBUMIN 1.5 g/dL (3.4-5.0); ALKALINE PHOSPHATASE 295 U/L (46-116); BILIRUBIN - TOTAL 1.82 mg/dL (0.2-1.3); CALC OSMOLALITY 285 mosm/kg (275-300); CALCIUM 7.6 mg/dL (8.5-10.1); CARBON DIOXIDE 26.2 mmol/L (21.0-32.0); CHLORIDE - SERUM 108 mmol/L (98-107); CREATININE - SERUM 0.6 mg/dL (0.6-1.3); GLUCOSE 204 mg/dL (74-106); MAGNESIUM - SERUM 1.8 mg/dL (1.8-2.4); POTASSIUM - SERUM 3.7 mmol/L (3.5-5.1); PROTEIN - SERUM 4.8 g/dL (6.4-8.2); SODIUM 141 mmol/L (136-145); UREA NITROGEN 11 mg/dL (7-18); eGFR NON AFRICAN AMERICAN > 90 mL/min (90-120)
[2017-09-08 06:37] LABS: ALT (SGPT) 69 U/L (10-68); PHOSPHOROUS 2.9 mg/dL (2.5-4.9)
[2017-09-08 12:57] VITALS: BP 80/34
[2017-09-08 16:54] VITALS: BP 150/57
[2017-09-08 19:37] VITALS: BP 169/67
[2017-09-09] VITALS (7 sets, daily range): BP systolic 96–187; BP diastolic 50–69
[2017-09-09 06:02] LABS: BASOPHILS 0.2 % (0-2); HEMATOCRIT 31.2 % (42.0-54.0); HEMOGLOBIN 10.4 g/dL (13.5-17.5); IMMATURE GRANULOCYTES 0.3 % (0-5); LYMPHOCYTES 22.4 % (15-50); MCH 30.6 pg (26.0-34.0); MCHC 33.3 g/dL (31.0-37.0); MCV 91.8 fL (80.0-100.0); MEAN PLATELET VOLUME 10.3 fL (7.4-10.4); NEUTROPHILS 66.1 % (40-80); RDW 15.8 % (11.5-14.5); WBC 12.3 10x3/uL (4.8-10.8)
[2017-09-09 06:08] LABS: PLATELET COUNT 412 10x3/uL (130-400)
[2017-09-09 06:44] LABS: ALBUMIN 1.7 g/dL (3.4-5.0); ALKALINE PHOSPHATASE 302 U/L (46-116); ALT (SGPT) 58 U/L (10-68); CALCIUM 7.6 mg/dL (8.5-10.1); CARBON DIOXIDE 29.6 mmol/L (21.0-32.0); CHLORIDE - SERUM 106 mmol/L (98-107); CREATININE - SERUM 0.6 mg/dL (0.6-1.3); MAGNESIUM - SERUM 1.9 mg/dL (1.8-2.4); POTASSIUM - SERUM 3.7 mmol/L (3.5-5.1); PROTEIN - SERUM 5.4 g/dL (6.4-8.2); SODIUM 141 mmol/L (136-145); UREA NITROGEN 11 mg/dL (7-18); eGFR NON AFRICAN AMERICAN > 90 mL/min (90-120)
[2017-09-09 06:46] LABS: CALC OSMOLALITY 279 mosm/kg (275-300); GLUCOSE 103 mg/dL (74-106); PHOSPHOROUS 3.9 mg/dL (2.5-4.9)
[2017-09-10 03:58] VITALS: BP 151/48
[2017-09-10 06:40] LABS: BASOPHILS 0.1 % (0-2); EOSINOPHILS 2.2 % (0-7); HEMATOCRIT 30.6 % (42.0-54.0); IMMATURE GRANULOCYTES 0.3 % (0-5); LYMPHOCYTES 18.3 % (15-50); MCH 30.7 pg (26.0-34.0); MCHC 32.7 g/dL (31.0-37.0); MEAN PLATELET VOLUME 10.4 fL (7.4-10.4); MONOCYTES 4.9 % (2-11); NEUTROPHILS 74.2 % (40-80); PLATELET COUNT 386 10x3/uL (130-400); RBC 3.26 10x6/uL (4.20-6.10); RDW 15.1 % (11.5-14.5); WBC 14.2 10x3/uL (4.8-10.8)
[2017-09-10 06:44] LABS: MCV 93.9 fL (80.0-100.0)
[2017-09-10 07:23] LABS: ALBUMIN 1.5 g/dL (3.4-5.0); ALKALINE PHOSPHATASE 270 U/L (46-116); CALCIUM 7.4 mg/dL (8.5-10.1); CARBON DIOXIDE 29.1 mmol/L (21.0-32.0); CHLORIDE - SERUM 102 mmol/L (98-107); CREATININE - SERUM 0.7 mg/dL (0.6-1.3); MAGNESIUM - SERUM 1.9 mg/dL (1.8-2.4); PHOSPHOROUS 3.3 mg/dL (2.5-4.9); PROTEIN - SERUM 5.1 g/dL (6.4-8.2); SODIUM 136 mmol/L (136-145); UREA NITROGEN 13 mg/dL (7-18); eGFR NON AFRICAN AMERICAN > 90 mL/min (90-120)
[2017-09-10 07:24] LABS: ALT (SGPT) 40 U/L (10-68); CALC OSMOLALITY 283 mosm/kg (275-300); GLUCOSE 316 mg/dL (74-106); POTASSIUM - SERUM 4.3 mmol/L (3.5-5.1)
[2017-09-10 08:27] VITALS: BP 166/54
[2017-09-10 11:34] VITALS: BP 113/44
[2017-09-10 16:09] VITALS: BP 152/44
[2017-09-10 19:59] VITALS: BP 121/41
[2017-09-11 04:30] VITALS: BP 159/79
[2017-09-11 05:36] LABS: BASOPHILS 0.1 % (0-2); EOSINOPHILS 1.4 % (0-7); HEMATOCRIT 32.2 % (42.0-54.0); HEMOGLOBIN 10.4 g/dL (13.5-17.5); IMMATURE GRANULOCYTES 0.3 % (0-5); LYMPHOCYTES 14.4 % (15-50); MCH 30.1 pg (26.0-34.0); MCHC 32.3 g/dL (31.0-37.0); MCV 93.3 fL (80.0-100.0); MEAN PLATELET VOLUME 10.5 fL (7.4-10.4); MONOCYTES 5.4 % (2-11); NEUTROPHILS 78.4 % (40-80); RBC 3.45 10x6/uL (4.20-6.10); RDW 14.9 % (11.5-14.5); WBC 17.6 10x3/uL (4.8-10.8)
[2017-09-11 05:45] LABS: PLATELET COUNT 464 10x3/uL (130-400)
[2017-09-11 05:58] LABS: ALBUMIN 1.6 g/dL (3.4-5.0); ALKALINE PHOSPHATASE 267 U/L (46-116); ALT (SGPT) 36 U/L (10-68); CALC OSMOLALITY 283 mosm/kg (275-300); CALCIUM 7.5 mg/dL (8.5-10.1); CARBON DIOXIDE 30.5 mmol/L (21.0-32.0); CHLORIDE - SERUM 101 mmol/L (98-107); CREATININE - SERUM 0.7 mg/dL (0.6-1.3); GLUCOSE 275 mg/dL (74-106); PHOSPHOROUS 3.2 mg/dL (2.5-4.9); POTASSIUM - SERUM 4.2 mmol/L (3.5-5.1); PROTEIN - SERUM 5.5 g/dL (6.4-8.2); SODIUM 137 mmol/L (136-145); UREA NITROGEN 13 mg/dL (7-18); eGFR NON AFRICAN AMERICAN > 90 mL/min (90-120)
[2017-09-11 08:56] VITALS: BP 196/77
[2017-09-11 12:22] VITALS: BP 142/54
[2017-09-11 17:17] VITALS: BP 148/54
[2017-09-11 20:41] VITALS: BP 186/71
[2017-09-12 04:42] VITALS: BP 183/63
[2017-09-12 06:15] LABS: ALBUMIN 1.7 g/dL (3.4-5.0); ALKALINE PHOSPHATASE 246 U/L (46-116); ALT (SGPT) 34 U/L (10-68); BILIRUBIN - TOTAL 1.74 mg/dL (0.2-1.3); CALCIUM 8.1 mg/dL (8.5-10.1); CARBON DIOXIDE 32.9 mmol/L (21.0-32.0); CHLORIDE - SERUM 98 mmol/L (98-107); GLUCOSE 280 mg/dL (74-106); MAGNESIUM - SERUM 1.9 mg/dL (1.8-2.4); PHOSPHOROUS 3.8 mg/dL (2.5-4.9); POTASSIUM - SERUM 4.3 mmol/L (3.5-5.1); PROTEIN - SERUM 5.9 g/dL (6.4-8.2); SODIUM 135 mmol/L (136-145); eGFR NON AFRICAN AMERICAN 86 mL/min (90-120)
[2017-09-12 06:22] LABS: HEMATOCRIT 23.8 % (42.0-54.0); HEMOGLOBIN 7.7 g/dL (13.5-17.5); MCH 30.4 pg (26.0-34.0); MCHC 32.4 g/dL (31.0-37.0); MCV 94.1 fL (80.0-100.0); MEAN PLATELET VOLUME 10.5 fL (7.4-10.4); PLATELET COUNT 694 10x3/uL (130-400); RBC 2.53 10x6/uL (4.20-6.10); RDW 14.7 % (11.5-14.5)
[2017-09-12 06:28] LABS: CALC OSMOLALITY 281 mosm/kg (275-300); CREATININE - SERUM 0.9 mg/dL (0.6-1.3); UREA NITROGEN 19 mg/dL (7-18)
[2017-09-12 06:32] LABS: APPEARANCE HAZY (CLEAR); BILIRUBIN NEGATIVE (NEGATIVE); COLOR DK YELLOW (YELLOW); GLUCOSE NEGATIVE (NEGATIVE); KETONE NEGATIVE (NEGATIVE); NITRITE NEGATIVE (NEGATIVE); PROTEIN NEGATIVE (NEGATIVE)
[2017-09-12 06:34] LABS: BACTERIA FEW /hpf (NONE SEEN); EPITHELIAL CELLS 0-5 /hpf (0-5); RED CELLS - URINE NONE SEEN /hpf (0-5); WHITE CELLS - URINE 0-5 /hpf (0-5); YEAST >1+ WITH HYPHAE /hpf (NONE SEEN)
[2017-09-12 07:21] LABS: LYMPHOCYTES 8 % (15-50); MONOCYTES 8 % (2-11); NEUTROPHILS 84 % (40-80)
[2017-09-12 07:22] LABS: PLATELET ESTIMATE INCREASED
[2017-09-12 08:21] VITALS: BP 122/54
[2017-09-12 10:27] LABS: BASOPHILS 0.1 % (0-2); EOSINOPHILS 0.1 % (0-7); HEMATOCRIT 33.1 % (42.0-54.0); HEMOGLOBIN 10.8 g/dL (13.5-17.5); IMMATURE GRANULOCYTES 0.4 % (0-5); LYMPHOCYTES 11.9 % (15-50); MCH 30.6 pg (26.0-34.0); MCHC 32.6 g/dL (31.0-37.0); MCV 93.8 fL (80.0-100.0); MONOCYTES 9.2 % (2-11); NEUTROPHILS 78.3 % (40-80); PLATELET COUNT 525 10x3/uL (130-400); RBC 3.53 10x6/uL (4.20-6.10); RDW 14.5 % (11.5-14.5); WBC 21.4 10x3/uL (4.8-10.8)
[2017-09-12 13:11] VITALS: BP 126/53
[2017-09-12 16:19] VITALS: BP 126/56
[2017-09-12 21:01] VITALS: BP 124/48
[2017-09-13 04:00] VITALS: BP 101/54
[2017-09-13 06:03] LABS: BASOPHILS 0.1 % (0-2); EOSINOPHILS 0 % (0-7); HEMATOCRIT 29.2 % (42.0-54.0); HEMOGLOBIN 9.3 g/dL (13.5-17.5); IMMATURE GRANULOCYTES 0.4 % (0-5); LYMPHOCYTES 10.9 % (15-50); MCH 30.3 pg (26.0-34.0); MCHC 31.8 g/dL (31.0-37.0); MCV 95.1 fL (80.0-100.0); MEAN PLATELET VOLUME 10.5 fL (7.4-10.4); MONOCYTES 9.8 % (2-11); NEUTROPHILS 78.8 % (40-80); PLATELET COUNT 529 10x3/uL (130-400); RBC 3.07 10x6/uL (4.20-6.10); RDW 14.4 % (11.5-14.5); WBC 21.2 10x3/uL (4.8-10.8)
[2017-09-13 06:16] LABS: ALBUMIN 1.4 g/dL (3.4-5.0); ALKALINE PHOSPHATASE 193 U/L (46-116); ALT (SGPT) 29 U/L (10-68); CALCIUM 7.5 mg/dL (8.5-10.1); CARBON DIOXIDE 31.1 mmol/L (21.0-32.0); CHLORIDE - SERUM 102 mmol/L (98-107); CREATININE - SERUM 0.7 mg/dL (0.6-1.3); MAGNESIUM - SERUM 1.6 mg/dL (1.8-2.4); PHOSPHOROUS 2.9 mg/dL (2.5-4.9); POTASSIUM - SERUM 4.1 mmol/L (3.5-5.1); PROTEIN - SERUM 5.3 g/dL (6.4-8.2); SODIUM 138 mmol/L (136-145); UREA NITROGEN 16 mg/dL (7-18); eGFR NON AFRICAN AMERICAN > 90 mL/min (90-120)
[2017-09-13 06:18] LABS: CALC OSMOLALITY 277 mosm/kg (275-300); GLUCOSE 119 mg/dL (74-106)
[2017-09-13 08:08] VITALS: BP 106/55
[2017-09-13 12:41] VITALS: BP 82/42; BP 92/52
[2017-09-13 15:27] VITALS: BP 100/53
[2017-09-13 20:46] VITALS: BP 111/59
[2017-09-14 00:11] VITALS: BP 115/56
[2017-09-14 05:45] LABS: BASOPHILS 0.1 % (0-2); EOSINOPHILS 0.3 % (0-7); HEMATOCRIT 29.4 % (42.0-54.0); HEMOGLOBIN 9.4 g/dL (13.5-17.5); IMMATURE GRANULOCYTES 0.3 % (0-5); LYMPHOCYTES 13.3 % (15-50); MCH 30.1 pg (26.0-34.0); MCV 94.2 fL (80.0-100.0); MONOCYTES 8.4 % (2-11); NEUTROPHILS 77.6 % (40-80); PLATELET COUNT 487 10x3/uL (130-400); RBC 3.12 10x6/uL (4.20-6.10); RDW 14.5 % (11.5-14.5); WBC 17.5 10x3/uL (4.8-10.8)
[2017-09-14 06:14] LABS: ALBUMIN 1.2 g/dL (3.4-5.0); ALKALINE PHOSPHATASE 168 U/L (46-116); ALT (SGPT) 36 U/L (10-68); BILIRUBIN - TOTAL 1.26 mg/dL (0.2-1.3); CALC OSMOLALITY 281 mosm/kg (275-300); CALCIUM 7.4 mg/dL (8.5-10.1); CARBON DIOXIDE 27.9 mmol/L (21.0-32.0); CHLORIDE - SERUM 106 mmol/L (98-107); CREATININE - SERUM 0.7 mg/dL (0.6-1.3); GLUCOSE 110 mg/dL (74-106); MAGNESIUM - SERUM 1.8 mg/dL (1.8-2.4); POTASSIUM - SERUM 3.5 mmol/L (3.5-5.1); PROTEIN - SERUM 5.1 g/dL (6.4-8.2); SODIUM 140 mmol/L (136-145); UREA NITROGEN 19 mg/dL (7-18); eGFR NON AFRICAN AMERICAN > 90 mL/min (90-120)
[2017-09-14 06:21] LABS: PHOSPHOROUS 1.9 mg/dL (2.5-4.9)
[2017-09-14 08:01] VITALS: BP 113/59
[2017-09-14 15:57] VITALS: BP 116/56
[2017-09-14 21:20] VITALS: BP 101/65
[2017-09-15 00:38] VITALS: BP 98/57
[2017-09-15 05:04] VITALS: BP 112/68
[2017-09-15 05:57] LABS: BASOPHILS 0.1 % (0-2); EOSINOPHILS 0.6 % (0-7); HEMATOCRIT 30.8 % (42.0-54.0); HEMOGLOBIN 9.7 g/dL (13.5-17.5); IMMATURE GRANULOCYTES 0.3 % (0-5); MCH 29.6 pg (26.0-34.0); MCHC 31.5 g/dL (31.0-37.0); MCV 93.9 fL (80.0-100.0); MEAN PLATELET VOLUME 10.2 fL (7.4-10.4); MONOCYTES 7.2 % (2-11); NEUTROPHILS 77.8 % (40-80); RBC 3.28 10x6/uL (4.20-6.10); RDW 14.4 % (11.5-14.5); WBC 15.9 10x3/uL (4.8-10.8)
[2017-09-15 06:15] LABS: ALBUMIN 1.4 g/dL (3.4-5.0); ALKALINE PHOSPHATASE 184 U/L (46-116); ALT (SGPT) 44 U/L (10-68); CALC OSMOLALITY 288 mosm/kg (275-300); CALCIUM 7.3 mg/dL (8.5-10.1); CARBON DIOXIDE 25.2 mmol/L (21.0-32.0); CHLORIDE - SERUM 108 mmol/L (98-107); CREATININE - SERUM 0.8 mg/dL (0.6-1.3); GLUCOSE 140 mg/dL (74-106); MAGNESIUM - SERUM 1.8 mg/dL (1.8-2.4); PLATELET COUNT 591 10x3/uL (130-400); POTASSIUM - SERUM 3.5 mmol/L (3.5-5.1); PROTEIN - SERUM 5.3 g/dL (6.4-8.2); SODIUM 143 mmol/L (136-145); UREA NITROGEN 18 mg/dL (7-18); eGFR NON AFRICAN AMERICAN > 90 mL/min (90-120)
[2017-09-15 06:25] LABS: PHOSPHOROUS 2.4 mg/dL (2.5-4.9)
[2017-09-15 08:43] VITALS: BP 98/67
[2017-09-15 09:45] LABS: CREATINE KINASE 102 UL (21-232)
[2017-09-15 09:51] LABS: TROPONIN-I 5.839 ng/mL (0.000-0.060)
[2017-09-15 14:46] LABS: CKMB 6.8 U/L (0.0-3.6); CREATINE KINASE 93 UL (21-232)
[2017-09-15 14:48] LABS: TROPONIN-I 5.643 ng/mL (0.000-0.060)
[2017-09-15 20:00] VITALS: BP 113/89
[2017-09-15 21:36] LABS: CKMB 6.2 U/L (0.0-3.6); CREATINE KINASE 80 UL (21-232)
[2017-09-15 21:37] LABS: TROPONIN-I 6.931 ng/mL (0.000-0.060)
[2017-09-16] VITALS (7 sets, daily range): BP systolic 84–166; BP diastolic 45–83
[2017-09-16 07:08] LABS: BASOPHILS 0.1 % (0-2); EOSINOPHILS 0.3 % (0-7); HEMATOCRIT 31.1 % (42.0-54.0); HEMOGLOBIN 10.1 g/dL (13.5-17.5); IMMATURE GRANULOCYTES 0.4 % (0-5); LYMPHOCYTES 12.7 % (15-50); MCH 30.3 pg (26.0-34.0); MCHC 32.5 g/dL (31.0-37.0); MCV 93.4 fL (80.0-100.0); MEAN PLATELET VOLUME 10.5 fL (7.4-10.4); MONOCYTES 7.1 % (2-11); NEUTROPHILS 79.4 % (40-80); PLATELET COUNT 671 10x3/uL (130-400); RBC 3.33 10x6/uL (4.20-6.10); RDW 14.5 % (11.5-14.5); WBC 17.9 10x3/uL (4.8-10.8)
[2017-09-16 07:25] LABS: ALBUMIN 1.4 g/dL (3.4-5.0); ALKALINE PHOSPHATASE 168 U/L (46-116); ALT (SGPT) 41 U/L (10-68); BILIRUBIN - TOTAL 1.19 mg/dL (0.2-1.3); CALCIUM 7.4 mg/dL (8.5-10.1); CARBON DIOXIDE 26.9 mmol/L (21.0-32.0); CHLORIDE - SERUM 107 mmol/L (98-107); CREATININE - SERUM 0.7 mg/dL (0.6-1.3); MAGNESIUM - SERUM 1.7 mg/dL (1.8-2.4); PHOSPHOROUS 2.4 mg/dL (2.5-4.9); PROTEIN - SERUM 5.5 g/dL (6.4-8.2); SODIUM 143 mmol/L (136-145); eGFR NON AFRICAN AMERICAN > 90 mL/min (90-120)
[2017-09-16 07:31] LABS: CALC OSMOLALITY 282 mosm/kg (275-300); GLUCOSE 64 mg/dL (74-106); UREA NITROGEN 13 mg/dL (7-18)
[2017-09-16 07:46] LABS: POTASSIUM - SERUM 2.8 mmol/L (3.5-5.1)
[2017-09-17] VITALS (77 sets, daily range): BP systolic 59–122; BP diastolic 34–76; Ht 175.3 cm; Wt 62.9 kg
[2017-09-17 04:08] LABS: BASOPHILS 0.1 % (0-2); EOSINOPHILS 0 % (0-7); HEMATOCRIT 29.5 % (42.0-54.0); HEMOGLOBIN 9.4 g/dL (13.5-17.5); IMMATURE GRANULOCYTES 0.9 % (0-5); MCH 29.7 pg (26.0-34.0); MCHC 31.9 g/dL (31.0-37.0); MCV 93.4 fL (80.0-100.0); MEAN PLATELET VOLUME 10.5 fL (7.4-10.4); MONOCYTES 4.8 % (2-11); NEUTROPHILS 90.2 % (40-80); PLATELET COUNT 603 10x3/uL (130-400); RBC 3.16 10x6/uL (4.20-6.10); RDW 14.7 % (11.5-14.5); WBC 38.4 10x3/uL (4.8-10.8)
[2017-09-17 04:20] LABS: CALCIUM 7.2 mg/dL (8.5-10.1)
[2017-09-17 04:23] LABS: ANION GAP 21.1 mmol/L (8-16); CREATININE - SERUM 1.4 mg/dL (0.6-1.3); MAGNESIUM - SERUM 2.2 mg/dL (1.8-2.4); PHOSPHOROUS 5.7 mg/dL (2.5-4.9); POTASSIUM - SERUM 4.1 mmol/L (3.5-5.1)
[2017-09-17 12:51] LABS: PROTEIN - URINE 71.5 mg/dL (0.0-11.9)
[2017-09-17 15:18] LABS: INR 3.05 (0.85-1.17); PROTIME 30.8 SECONDS (11.6-15.0)
[2017-09-17 17:26] LABS: BASOPHILS 0.1 % (0-2); EOSINOPHILS 0 % (0-7); HEMATOCRIT 28.6 % (42.0-54.0); IMMATURE GRANULOCYTES 1.8 % (0-5); LYMPHOCYTES 4.1 % (15-50); MCH 30.1 pg (26.0-34.0); MCHC 31.5 g/dL (31.0-37.0); MCV 95.7 fL (80.0-100.0); MEAN PLATELET VOLUME 10.4 fL (7.4-10.4); MONOCYTES 2.6 % (2-11); NEUTROPHILS 91.4 % (40-80); PLATELET COUNT 601 10x3/uL (130-400); RBC 2.99 10x6/uL (4.20-6.10); RDW 14.9 % (11.5-14.5); WBC 26.6 10x3/uL (4.8-10.8)
[2017-09-17 17:34] LABS: ALBUMIN 1.4 g/dL (3.4-5.0); ANION GAP 20.7 mmol/L (8-16); BILIRUBIN - TOTAL 1.56 mg/dL (0.2-1.3); CARBON DIOXIDE 22.5 mmol/L (21.0-32.0); POTASSIUM - SERUM 4.2 mmol/L (3.5-5.1); PROTEIN - SERUM 4.8 g/dL (6.4-8.2)
[2017-09-17 17:37] LABS: CREATININE - SERUM 1.9 mg/dL (0.6-1.3)
[2017-09-17 17:42] LABS: MAGNESIUM - SERUM 2.3 mg/dL (1.8-2.4)
[2017-09-17 17:55] LABS: PHOSPHOROUS 7.3 mg/dL (2.5-4.9)
[2017-09-18] VITALS (75 sets, daily range): BP systolic 75–122; BP diastolic 28–72
[2017-09-18 04:56] LABS: BASOPHILS 0.1 % (0-2); EOSINOPHILS 0 % (0-7); HEMATOCRIT 26.8 % (42.0-54.0); HEMOGLOBIN 8.3 g/dL (13.5-17.5); IMMATURE GRANULOCYTES 1.5 % (0-5); LYMPHOCYTES 6.9 % (15-50); MCH 29.3 pg (26.0-34.0); MCV 94.7 fL (80.0-100.0); MEAN PLATELET VOLUME 10.6 fL (7.4-10.4); MONOCYTES 0.9 % (2-11); NEUTROPHILS 90.6 % (40-80); PLATELET COUNT 571 10x3/uL (130-400); RBC 2.83 10x6/uL (4.20-6.10); RDW 15.1 % (11.5-14.5); WBC 23.4 10x3/uL (4.8-10.8)
[2017-09-18 05:01] LABS: INR 7.41 (0.85-1.17)
[2017-09-18 05:22] LABS: ALBUMIN 1.6 g/dL (3.4-5.0); ALKALINE PHOSPHATASE 113 U/L (46-116); CALC OSMOLALITY 300 mosm/kg (275-300); CARBON DIOXIDE 18.3 mmol/L (21.0-32.0); CHLORIDE - SERUM 104 mmol/L (98-107); CREATINE KINASE 359 UL (21-232); CREATININE - SERUM 2.2 mg/dL (0.6-1.3); GLUCOSE 253 mg/dL (74-106); MAGNESIUM - SERUM 2.2 mg/dL (1.8-2.4); PHOSPHOROUS 6.7 mg/dL (2.5-4.9); POTASSIUM - SERUM 4.7 mmol/L (3.5-5.1); PROTEIN - SERUM 4.4 g/dL (6.4-8.2); SODIUM 142 mmol/L (136-145); UREA NITROGEN 39 mg/dL (7-18); eGFR NON AFRICAN AMERICAN 31 mL/min (90-120)
[2017-09-18 05:29] LABS: ALT (SGPT) 698 U/L (10-68); LDH 2027 U/L (85-227); TROPONIN-I 5.959 ng/mL (0.000-0.060)
[2017-09-18 05:30] LABS: CALCIUM 6.4 mg/dL (8.5-10.1)
[2017-09-18 05:34] LABS: CKMB 10.8 U/L (0.0-3.6)
[2017-09-19] VITALS: BP 93/35
[2017-09-19 01:00] VITALS: BP 78/41
[2017-09-19 02:00] VITALS: BP 76/31
[2017-09-19 02:30] VITALS: BP 82/36
[2017-09-19 03:00] VITALS: BP 70/30
== END 2017-09-19 03:45 | DRG 405 ==
LOC: D.MS 08:05 → D.CVICU 08:05 → D.ICU 08:05 → D.SDCHOLD 08:05 → D.CVICU 16:43 → D.MS 09-08 09:45 → D.M2 09-15 23:43 → D.ICU 09-17 00:06
PROVIDERS: Anesthesiology; Internal Medicine Pulmonary Disease; Surgery
PROC: 0FT40ZZ Resection of Gallbladder, Open Approach (ICD-10-PCS; 2017-09-05)
PROC: 07BB0ZZ Excision of Mesenteric Lymphatic, Open Approach (ICD-10-PCS; 2017-09-05)
PROC: 0FBG0ZZ Excision of Pancreas, Open Approach (ICD-10-PCS; principal; 2017-09-05 10:30)
PROC: 0DB90ZZ Excision of Duodenum, Open Approach (ICD-10-PCS; 2017-09-05 10:30)
PROC: 0BH17EZ Insertion of Endotracheal Airway into Trachea, Via Natural or Artificial Opening (ICD-10-PCS; 2017-09-17)
PROC: 5A1945Z Respiratory Ventilation, 24-96 Consecutive Hours (ICD-10-PCS; 2017-09-17)
DX: C25.0 Malignant neoplasm of head of pancreas (principal); E43 Unspecified severe protein-calorie malnutrition; J96.01 Acute respiratory failure with hypoxia; A41.9 Sepsis, unspecified organism; R65.21 Severe sepsis with septic shock; K72.00 Acute and subacute hepatic failure without coma; I50.43 Acute on chronic combined systolic (congestive) and diastolic (congestive) heart failure; K56.7 Ileus, unspecified; Z68.1 Body mass index [BMI] 19.9 or less, adult; C77.2 Secondary and unspecified malignant neoplasm of intra-abdominal lymph nodes; E87.2 Acidosis; N17.9 Acute kidney failure, unspecified; Z66 Do not resuscitate; J45.909 Unspecified asthma, uncomplicated; K21.9 Gastro-esophageal reflux disease without esophagitis; E11.9 Type 2 diabetes mellitus without complications; Z86.73 Personal history of transient ischemic attack (TIA), and cerebral infarction without residual deficits; R40.2364 Coma scale, best motor response, obeys commands, 24 hours or more after hospital admission; R40.2144 Coma scale, eyes open, spontaneous, 24 hours or more after hospital admission; R40.2234 Coma scale, best verbal response, inappropriate words, 24 hours or more after hospital admission; I70.203 Unspecified atherosclerosis of native arteries of extremities, bilateral legs; R03.1 Nonspecific low blood-pressure reading; R19.7 Diarrhea, unspecified; I48.91 Unspecified atrial fibrillation; R41.0 Disorientation, unspecified; R57.0 Cardiogenic shock; I11.0 Hypertensive heart disease with heart failure; I08.0 Rheumatic disorders of both mitral and aortic valves; E83.39 Other disorders of phosphorus metabolism; E83.51 Hypocalcemia; I73.9 Peripheral vascular disease, unspecified